=== PATIENT | female | born 1955 | race Caucasian/White ===

== ENCOUNTER → 2022-09-15 10:01 | Outpatient (CLI) | payer MEDICARE, SELFPAY ==
--- NOTE | ~2022-09-15 | MM_ITS ---
EXAMINATION: MM screening ginger LT w jess HISTORY: Screening TECHNIQUE: Craniocaudal and mediolateral oblique 3-D tomosynthesis images were obtained and synthetic 2-D images were generated. CAD analysis was submitted and interpreted. COMPARISON: No prior mammogram is available for comparison at this institution. BREAST PARENCHYMAL COMPOSITION: There are scattered areas of fibroglandular density. FINDINGS: There is no evidence of suspicious mass, calcification, or architectural distortion to sugg est malignancy in the left breast. There has been no suspicious interval change. IMPRESSION: 1. No mammographic evidence of malignancy. 2. Recommend routine screening mammography in one year. BI-RADS Category 1: Negative Reviewed, dictated and finalized at location A. IST DESIGNER
== END ==
PROVIDERS: PCP Family Medicine; Visit Provider Obstetrics & Gynecology
DX: Z12.31 Encounter for screening mammogram for malignant neoplasm of breast (principal)
CPT/HCPCS: 77063; 77067

== ENCOUNTER 2022-10-17 08:03 | Outpatient (CLI) | payer MEDICARE, SELFPAY ==
[2022-10-17 12:17] LABS: Kit Draw Collected
== END 2022-10-17 08:04 | disposition home or self-care (01) ==
LOC: ANHGOSHLAB 08:05
PROVIDERS: PCP Family Medicine; Visit Provider Nurse Practitioner Family
DX: E55.9 Vitamin D deficiency, unspecified (principal); E78.5 Hyperlipidemia, unspecified; I10 Essential (primary) hypertension
CPT/HCPCS: 36415

== ENCOUNTER 2023-04-25 08:02 | Outpatient (CLI) | payer MEDICARE, SELFPAY ==
[2023-04-25 12:59] LABS: Basophils Absolute Auto 0.1 K/mm3 (0.0-0.1); Eosinophils Absolute Auto 0.1 K/mm3 (0-0.3); Eosinophils Percent Auto 2.6 % (0-4.4); Hematocrit 42.8 % (37.0-47.0); Immature Granulocyte Absolute 0.03 K/mm3 (0.00-0.031); Immature Granulocyte Percent A 0.6 % (0-0.5); Lymphocytes Absolute Auto 1.68 K/mm3 (0.9-3.2); Lymphocytes Percent Auto 34.2 % (18.3-44.2); Mean Corpuscular HGB Conc 32.7 g/dl (32-36); Mean Corpuscular Hemoglobin 31.1 pg (26-34); Mean Corpuscular Volume 95.1 fl (80-100); Monocytes Absolute Auto 0.4 K/mm3 (0.1-0.6); Monocytes Percent Auto 8.6 % (2.6-8.5); Neutrophils Absolute Auto 2.6 K/mm3 (1.3-6.7); Platelet Count Result 219 k/mm3 (150-375); Red Cell Distribution Width 13.3 % (11.5-14.5); White Blood Count 4.9 K/mm3 (4.5-10.0)
[2023-04-25 13:15] LABS: Alanine Aminotransferase 34 U/L (6-35); Albumin Level 4.4 g/dL (3.5-5.1); Alkaline Phosphatase 92 U/L (38-126); Anion Gap 9 mmol/L (8-16); Aspartate Amino Transferase 43 U/L (14-36); Bilirubin,Total 0.6 mg/dL (0.2-1.3); Blood Urea Nitrogen 11 mg/dL (7-17); Carbon Dioxide 25 mmol/L (22-30); Chloride 104 mmol/L (98-107); Cholesterol 237 mg/dL (0-200); Estimated Glomerular Filt Rate > 60; Glucose 92 mg/dL (65-110); HDL Direct 83 mg/dL; Potassium 3.8 mmol/L (3.4-5.0); Sodium 138 mmol/L (137-145); Triglycerides 141 mg/dL (<150)
[2023-04-25 13:26] LABS: LDL Cholesterol Direct 113 mg/dL
[2023-04-25 13:30] LABS: Hemoglobin A1C 5.4 % (<5.7)
[2023-04-25 13:31] LABS: Vitamin D 25 Hydroxy 79.2 ng/mL
== END 2023-04-25 08:03 | disposition home or self-care (01) ==
PROVIDERS: PCP Family Medicine; Visit Provider Nurse Practitioner Family
DX: I10 Essential (primary) hypertension (principal); Z13.220 Encounter for screening for lipoid disorders; Z13.21 Encounter for screening for nutritional disorder; Z13.1 Encounter for screening for diabetes mellitus; Z13.29 Encounter for screening for other suspected endocrine disorder; Z79.899 Other long term (current) drug therapy
CPT/HCPCS: 36415; 80053; 80061; 82306; 83036; 84443; 85025

== ENCOUNTER → 2023-09-26 09:57 | Outpatient (CLI) | payer MEDICARE, SELFPAY ==
--- NOTE | ~2023-09-26 | DEXA_ITS ---
Bone Density Report Name: JOSE ELIAS AVITIA Age: 68 Sex: Female Ethnicity: White Date of : 1955 Indication: postmenopausal osteoporosis; prior fracture; Referring Provider: Ivis Avalos Study: Bone densitometry was performed. Exam Date: September 26, 2023 Accession number: [id number] Bone Density: Region BMD T-score Z-score Classification AP Spine (L1-L4) 0.681 -3.3 -1.5 Osteoporosis Femoral Neck (Left) 0.712 -1.2 0.3 Osteopenia Total Hip (Left) 0.818 -1.0 0.3 Normal Femoral Neck (Right) 0.729 -1.1 0.5 Osteopenia Total Hip (Right) 0.800 -1.2 0.1 Osteopenia Total Hip Mean 0.809 -1.1 0.2 Osteopenia World Health Organization criteria for BMD impression classify patients as: Normal (T-score at or above -1.0), Osteopenia (T-score between -1.0 and -2.5), or Osteoporosis (T-score at or below -2.5). 10-year Fracture Risk: FRAX not reported because: Some T-score for Spine Total or Hip Total or Femoral Neck at or below -2.5 Previous Exams: Region Exam Age BMD T-score BMD Change BMD Change Date g/cm2 vs Baseline vs Previous AP Spine(L1-L4) 09/26/2023 68 0.681 -3.3 -0.064 -0.074 11/06/2009 54 0.755 -2.7 0.011 0.011 07/08/2008 52 0.744 -2.8 Total Hip(Left) 09/26/2023 68 0.818 -1.0 -0.090* -0.110* 11/06/2009 54 0.928 -0.1 0.020 0.020 07/08/2008 52 0.908 -0.3 Total Hip(Right) 09/26/2023 68 0.800 -1.2 -0.130* -0.157* 11/06/2009 54 0.956 0.1 0.027 0.027 07/08/2008 52 0.929 -0.1 *Denotes significance at 95% confidence level, LSC for AP Spine = 0.022 g/cm2, LSC for Total Hip = 0.027 g/cm2 Clinical Information Provided by Patient: Has had a low trauma fracture Has used the following medications: Vitamin D Patient maximum height was 62.25 Menopause Age: 51 No regular weight bearing exercise Drinks caffeinated beverages Onset of menses at age 17 Number of children 3 Missed period for more than 6 months in a row Impression: The patient has established osteoporosis, based on the Total Spine T-score and the existence of a prior fracture. The patient has risk factors, including: previous fracture. The BMD for the Total Hip(Left) decreased, changing by -0.110 since the last DXA exam. The BMD for the Total Hip(Right) decreased, changing by -0.157 since the last DXA exam. Discussion: HIGH RISK OF FRACTURE. BONE DENSITY IS UNDESI
--- NOTE | ~2023-09-26 | MM_ITS ---
EXAMINATION: MM screening ginger LT w jess HISTORY: Screening mammogram, history of right mastectomy TECHNIQUE: Craniocaudal and mediolateral oblique 3-D tomosynthesis images were obtained and synthetic 2-D images were generated. CAD analysis was submitted and interpreted. COMPARISON: 09/15/2022 BREAST PARENCHYMAL COMPOSITION: There are scattered areas of fibroglandular density.22 FINDINGS: No suspicious mass, calcification, or architectural distortion are identified to suggest ma lignancy. There has been no suspicious interval change. IMPRESSION: 1. No mammographic evidence of malignancy. 2. Recommend routine screening mammography in one year. BI-RADS Category 1: Negative Reviewed, dictated and finalized at location A. PROGRAMMER REMOTE
== END ==
PROVIDERS: PCP Obstetrics & Gynecology; Visit Provider Obstetrics & Gynecology
DX: Z12.31 Encounter for screening mammogram for malignant neoplasm of breast (principal); M85.88 Other specified disorders of bone density and structure, other site; M81.0 Age-related osteoporosis without current pathological fracture; M85.852 Other specified disorders of bone density and structure, left thigh; M85.851 Other specified disorders of bone density and structure, right thigh
CPT/HCPCS: 77063; 77067; 77080

== ENCOUNTER 2024-09-30 14:13 | Outpatient (CLI) | payer MEDICARE, SELFPAY ==
--- NOTE | ~2024-09-30 | MM_ITS ---
EXAMINATION: MM screening ginger LT w jess HISTORY: Screening. Status post right mastectomy for malignancy. TECHNIQUE: Craniocaudal and mediolateral oblique 3-D tomosynthesis images were obtained and synthetic 2-D images were generated. CAD analysis was submitted and interpreted. COMPARISON: Comparison to multiple prior studies sequentially, with oldest reviewed study dated 09/2022. BREAST PARENCHYMAL COMPOSITION: Not dense: There are scattered areas of fibroglandular density. FINDINGS: There is no evidence of suspicious mass, calcification, or architectural distortion to sugg est malignancy in the left breast. There has been no suspicious interval change. IMPRESSION: 1. No mammographic evidence of malignancy. 2. Recommend routine screening mammography in one year. BI-RADS Category 1: Negative Reviewed, dictated and finalized at location B. L INSTALLER
== END 2024-09-30 14:14 | disposition home or self-care (01) ==
LOC: MICIMG 14:14
PROVIDERS: PCP Family Medicine; Visit Provider Family Medicine
DX: Z12.31 Encounter for screening mammogram for malignant neoplasm of breast (principal)
CPT/HCPCS: 77063; 77067

== ENCOUNTER 2025-01-08 08:30 | Outpatient (CLI) | payer MEDICARE, SELFPAY ==
--- OUTSIDE RECORDS SUMMARY | 2025-01-08 08:33 | XMS_ITS | Clinical Summary ---
Author Organization [facility] Address [address] [place] [address] Care Team Providers Care House Wrecker Name Role Phone Lonnie Myers MD Primary Care Provider [phone] Source Comments [facility],non-owned Affiliates and Associated Physician Practices is amultiple site organization consisting of ambulatory clinics and hospital sitesin [place], [place], [place] and [place]. This disclosure is being madepursuant to the Care Everywhere program and may not contain all information available regarding this patient. Last updated 18.[facility] Allergies Active Allergy Reactions Criticality Noted Date Comments Prednisone 02/05/2017 Medications * Be aware that medications may not be up to date on this document. Alwaysverify current medications with the patient. No known medications Social History Tobacco Use Types Packs/Day Years Used Date Smoking Tobacco: Never Smokeless Tobacco: Never Comments Unknown Sex and Gender Information Value Date Recorded Sex Assigned at Not on file Legal Sex Female 10:37 AM CDT Gender Identity Not on file Sexual Orientation Not on file Last Filed Vital Signs Vital Sign Reading Time Taken Comments Blood Pressure 142/94 02/05/2017 11:31 AM CDT Pulse 78 02/05/2017 11:31 AM CDT Temperature 36.6 C (97.9 F) 02/05/2017 11:31 AM CDT Respiratory Rate 16 02/05/2017 11:31 AM CDT Oxygen Saturation 99% 02/05/2017 11:31 AM CDT Inhaled Oxygen Concentration - - Weight 68 kg (150 lb) 02/05/2017 11:31 AM CDT Height 157.5 cm (5' 2) 02/05/2017 11:31 AM CDT Body Mass Index 27.44 02/05/2017 11:31 AM CDT Plan of Treatment Health Maintenance Due Date Last Done Comments BONE DENSITY TESTING 1955 COLOGUARD (AGES 45-75) - COL ON CA SCREENING 1955 COLON MONITORING 1955 COLONOSCOPY - COLON CA SCREENING 1955 CT COLONOGRAPHY - COLON CA SCREENING 1955 Colorectal Cancer Screening 1955 FIT - COLON CA SCREENING 1955 FLEX SIG - COLON CA SCREENING 1955 LIPID TESTING 1955 MAMMOGRAM 1955 HEPATITIS C SCREENING 08/19/1975 DTAP/TDAP/TD VACCINES (1 - Tdap) 1976 PNEUMOCOCCAL VACCINE 50+ (1 of 1 - PCV) 2007 ZOSTER VACCINE (1 of 2) 2007 COVID-19 VACCINE ( - 2023-2 5 season) 2024 DEPRESSION SCREENING 08/14/2024 INFLUENZA VACCINE (Season Ended) 2025 Respiratory Syncytial Virus (RSV) Vaccine Pt: or over 60 yrs (1 - 1-dose 75+ series) 2032 HEPATITIS B VACCINE Aged Out No longe r eligible based on patient's age to complete this topic HIB VACCINE Aged Out No longer eligi ble based on patient's age to complete this topic HPV VACCINE Aged Out No longer eligi ble based on patient's age to complete this topic MENINGOCOCCAL (Group B) VACC INE SHARED DECISION-MAKING Aged Out No longer eligibl e based on patient's age to complete this topic MENINGOCOCCAL GROUPS A/C/Y/W VACCINE Aged Out No longer eligible b ased on patient's age to complete this topic Insurance [facility] Address: [facility] [id number] [place] [address] Care Teams House Wrecker Relationship Specialty Start Date End Date Lonnie Myers MD [address] [place] [address] PCP - General Family Medicine 02/05/17
--- OUTSIDE RECORDS SUMMARY | 2025-01-08 08:33 | XMS_ITS | Clinical Summary ---
Author Organization [facility] Address [address] [place] [address] Phone Care Team Providers Care Recruiting And Selection Consultant Name Role Phone Shelbie Joseph MD Primary Care Provider Allergies Active Allergy Reactions Criticality Noted Date Comments Chocolate Flavor Other (See Comments) 1 MIGRAINES Prednisone Other (See Comments) 02/05/2017 Heart races Medications VITAMIN E PO Take by mouth daily. Active OMEGA-3 FATTY ACIDS (FISH OIL PO) Take by mouth daily. Active CALCIUM ORAL Take by mouth. Active Ergocalciferol, Vitamin D2, 1,000 unit Oral Tab Take by mouth. Active Magnesium 100 mg Oral Tab Take by mouth. Active clobetasol (TEMOVATE) 0.05 % Ointment 05/19/2017 Active irbesartan (AVAPRO) 150 mg tablet Take 300 mg by mouth daily. 99 12/05/2017 Active Glucosamine Sulfate 1,000 mg Capsule Take by mouth. Active apremilast (OTEZLA) 30 mg TabletIndication s:Psoriasis Take 1 Tablet by mouth 2 times daily. 12/21/2018 Active amLODIPine (NORVASC) 5 mg tablet Take 5 mg by mouth daily. Active rosuvastatin (CRESTOR) 5 mg tablet Take 10 mg by mouth daily at bedtime. Active Active Problems Patient Care Coordination No te Formatting of this note migh t be different from the original. Primary Care: Lonnie Myers MD (General) Referring Provider: Dafne Grimes MD [address] [place] [address] Other: Problem Noted Date Diagnosed Date BRCA negative 07/20/2015 Overview (07/20/2015): The patient underwent the [employer] my risk genetic testing due to her personal history of breast cancer diagnosed under age 50. There was also a family history of a mother with breast cancer. The patient also had a family history of a brother that at age 50 of metastatic colorectal cancer. The patient tested negative for any deleterious mutations in all 25 genes that were tested. This testing included the genes responsible for HBOC, Morocho syndrome, as well as most additional hereditary cancer syndromes. Family history of breast cancer in mother 2014 Family history of malignant neoplasm of colon in relative diagnosed when younger than 50 years of age 1106/23/2015 Encounter for genetic counseling and testing 05/2015 S/P right mastectomy 03/06/2015 Breast Cancer- T2 N1, stage IIB right breast can ce 12/23/2011 Psoriasis 03/04/2009 Breast cancer 03/04/2009 Overview (10/17/2012): pancreatic cancer prior to her dx 11/22/06 Stage IIb (T2N1Mx) IDC RIGHT breast ER 87% MI 83% HER2/ruddy - Ki67 8% PREMENO s/p RIGHT mastectomy Fec x 3 --Taxotere x 3 finished 04/26/07 (now postmenopausal) 07/19/07 Radiaiton complete 08/14/07 TMX x 5 year Assessment & Plan (05/13/2013 2:42 PM CDT): 6 1/2 yr out mammo left February lsot daronht with AID Assessment & Plan (10/17/2012 3:00 PM EMERGENCY ROOM TECHNICIAN): 6 years out Mammo on left in December BMD 2011 ROV 6 months Assessment & Plan (04/09/2012 3:11 PM CDT): 5 1/2 years out Will stop TMX now mammo December BMD 2011 ROV 1 year Assessment & Plan (09/30/2011 11:12 AM EMERGENCY ROOM TECHNICIAN): 5 years out in November last week On TMX until next Aug Mammo November Bmd due this year ROV 1 year Assessment & Plan (03/25/2011 11:22 AM CDT): 4 + years out 2 grandsons - live next door to her On TMX 3 1/2 years Mammo November BMD 2009 ROV 6 months per her request Assessment & Plan (09/20/2010 11:23 AM EMERGENCY ROOM TECHNICIAN): Will be 4yrs out in November ENGAGED On TMX 3 yrs Mammogram November Implant left breast with cysts above it - check u/s BMD 2009 ROV 6 months Assessment & Plan (03/19/2010 3:03 PM CDT): 3 yrs out Tmx / urs - doesn't want to switch Mammogram November Implant left breast BMD 2009 ROV 1 year Assessment & Plan (09/14/2009 2:58 PM EMERGENCY ROOM TECHNICIAN): Taking Reliv and her ankle pain is gone 3 yrs out in November ROS negative; exam negative ROV 6 months Check labs Assessment & Plan (03/05/2009 11:42 AM CDT): 4 years 3 months from diagnosis with complaints of joint pain, primarily in ankles. Has been seeing a chiropractor for some time now. Rest of ROV neg. PLAN: Discussed TMX, which she's been on for 1 1/2 years adn is amenorrheic, but doesn't want to increase joint pains. Will reeval in 6 months. Check vitamin D Check labs. ROV 6 months. Personal history of malignant neoplasm of breast Disproportion between [place] breast and reconstructed breast Personal history of radiation therapy S/P TRAM (transverse rectus abdominis muscle) flap breast reconstruction Ventral incisional hernia without obstruction or gangrene Resolved Problems Problem Noted Date Diagnosed Date Resolved Date Depressive disorder, not elsewhere classified 03/04/20 09 09/06/2021 Family History Medical History Relation Name Comments Colon Cancer Brother 1 at 50 Healthy Brother 2 Healthy Brother 3 Healthy Father Healthy Maternal Aunt 2 Healthy Maternal Uncle Breast Cancer Mother Colon Cancer Paternal Uncle 1 Healthy Paternal Uncle 1 Healthy Paternal Uncle 2 Healthy Sister 1 Healthy Sister 2 Healthy Sister 3 Healthy Son 1 Healthy Son 2 Healthy Son 3 Cancer Neg Hx Ovarian Cancer Neg Hx Relation Name Status Comments Brother 1 Brother 2 Alive Brother 3 Alive Father Alive Maternal Aunt 1 Maternal Aunt 2 Alive Maternal Grandfather Maternal Grandmother Maternal Uncle Alive Mother Alive Paternal Grandfather Paternal Grandmother Paternal Uncle 1 Alive Paternal Uncle 2 Alive Sister 1 Alive Sister 2 Alive Sister 3 Alive Son 1 Alive Son 2 Alive Son 3 Alive Social History Tobacco Use Types Packs/Day Years Used Date Smoking Tobacco: Former Cigarettes 0.3 25 0 10/12/1981 - 10/12/2006 Smokeless Tobacco: Never Tobacco Cessation:Counseling Given: Not Answered Alcohol Use Standard Drinks/Week Comments Yes 0 (1 standard drink = 0.6 oz pur e alcohol) 1 BOTTLE WINE/WK Comments No Sex and Gender Information Value Date Recorded Sex Assigned at Not on file Legal Sex Female 5:41 AM EMERGENCY ROOM TECHNICIAN Gender Identity Not on file Sexual Orientation Not on file Occupation Industry Job Start Date Job End Date Not on file Not on file Not on file Not on file Last Filed Vital Signs Vital Sign Reading Time Taken Comments Blood Pressure 153/97 07/22/2022 9:23 AM EMERGENCY ROOM TECHNICIAN Pulse 80 07/24/2021 4:37 PM EMERGENCY ROOM TECHNICIAN Temperature 36.1 C (97 F) 07/24/2021 4:14 PM EMERGENCY ROOM TECHNICIAN Respiratory Rate 18 07/24/2021 4:37 PM EMERGENCY ROOM TECHNICIAN Oxygen Saturation 92% 07/24/2021 4:37 PM EMERGENCY ROOM TECHNICIAN Inhaled Oxygen Concentration - - Weight 79.8 kg (176 lb) 07/22/2022 9:23 AM EMERGENCY ROOM TECHNICIAN Height 157.5 cm (5' 2) 07/22/2022 9:23 AM EMERGENCY ROOM TECHNICIAN Body Mass Index 32.19 07/22/2022 9:23 AM EMERGENCY ROOM TECHNICIAN Plan of Treatment Health Maintenance Due Date Last Done Comments DTAP/TDAP/TD VACCINES (1 - Tdap) 1976 COLORECTAL SCREENING 2002 Colorectal Cancer Screening 2002 FIT-DNA Q 3 years 2002 FIT/FOBT Q 1 year 2002 Flex Sig/CT Colonography Q 5 years 2002 PNEUMOCOCCAL VACCINE 50+ YEA RS (1 of 1 - PCV) 2007 ZOSTER VACCINE (1 of 2) 2007 BREAST CANCER SCREENING 07/22/2022 07/22/20 21, 07/23/2020, 07/16/2019, Additional history exists OSTEOPOROSIS SCREENING 2022 INFLUENZA VACCINE (#1) 2024 RSV VACCINE (60+ or ) (1 - 1-dose 75+ series) 2032 Medical Devices Implanted Type Area Pet Walker Device Identifier Shelf Expiration Date Model / Serial / Lot Legal Cashier Clip Surgiclip Ii Abdoul 9.75in [id number] - [id number] Implanted:Qty: 1 on 11/18/2020 by Navin Leroy MD at [facility] Clip N/A: Abdomen MEDTRONIC - COVIDIEN [id number] 07/13/2025 [id number] / / [id number] Description:Implanted in jose ast and abdominal tissue Legal Cashier Clip Surgiclip Ii Abdoul 9.75in [id number] - [id number] Implanted:Qty: 1 on 11/18/2020 by Navin Leroy MD at [facility] Clip N/A: Abdomen MEDTRONIC - COVIDIEN [id number] 07/13/2025 [id number] / / [id number] Description:Implanted in jose ast and abdominal tissue Legal Cashier Clip Surgiclip Iii Ti Abdoul Sm 9 [id number] - [id number] Implanted:Qty: 1 on 11/18/2020 by Navin Leroy MD at [facility] Clip N/A: Abdomen [employer]ONIC - COVIDIEN [id number] 06/13/2025 [id number] / / [id number] Description:Implanted in jose ast and abdominal tissue Legal Cashier Clip Surgiclip Iii Ti Abdoul Sm 9 [id number] - [id number] Implanted:Qty: 1 on 11/18/2020 by Navin Leroy MD at [facility] Clip N/A: Abdomen [employer] - COVIDIEN [id number] 06/13/2025 [id number] / / [id number] Description:Implanted in jose ast and abdominal tissue Clip Micro Denali 6s [id number] - [id number] Implanted:Qty: 9 on 11/18/2020 by Navin Leroy MD at [facility] Clip N/A: Abdomen VITALITEC INTL [id number] 02/10/2025 [id number] / / [id number] Description:Implanted in jose ast and abdominal tissue Clip Micro Denali 6s [id number] - [id number] Implanted:Qty: 1 on 11/18/2020 by Navin Leroy MD at [facility] Clip N/A: Abdomen VITALITEC INTL [id number] 08/13/2025 [id number] / / [id number] Description:Implanted in jose ast and abdominal tissue Mesh Soft Mesh 6x6 [id number] - [id number] Implanted:Qty: 1 on 02/03/2021 by Navin Leroy MD at [facility] Mesh Left: Abdomen CR BARD[employer] [id number] 03/10/2025 [id number] / / [id number] Med Oval [id number] - [id number] Implanted:Qty: 1 on 07/24/2021 by Navin Leroy MD at [facility] Mesh N/A: Abdomen CR BARD- [employer] INC [id number] 01/08/2023 [id number] / / [id number] News Librarian Microvasc Anastomotic 3.5mm [id number] - [id number] Implanted:Qty: 1 on 11/18/2020 by Navin Leroy MD at [facility] Other Right: Breast SYNOVIS- MICRO CO ALLIANCE 10/01/2025 [id number] / / [id number] News Librarian Microvasc Anastomotic 3.0mm [id number] - [id number] Implanted:Qty: 1 on 11/18/2020 by Navin Leroy MD at [facility] Other Right: Breast SYNOVIS- MICRO [employer] ALLIANCE 09/11/2025 [id number] / / [id number] News Librarian Microvasc Anastomotic 2.0mm [id number] - [id number] Implanted:Qty: 1 on 11/18/2020 by Navin Leroy MD at [facility] Other Right: Breast SYNOVIS- MICRO CO ALLIANCE 01/27/2025 [id number] / / [id number] Hardware R Side Of Head Wei Cataracts With Iol Explanted Type Area Pet Walker Device Identifier Shelf Expiration Date Model / Serial / Lot Imp Breast Natrelle 410mx 165gm [id number] - [id number] Explanted:Qty : 1 on 11/18/2020 by Navin Leroy MD at [facility] Mammary Left: Breast ALLERGAN- MEDICAL [id number] / / [id number] Description:410-MX 165g, lot [id number] Viji implanted in 2009 Imp Breast Starr 410mx 165gm [id number] - [id number] Explanted:Qty : 1 on 11/18/2020 by Navin Leroy MD at [facility] Mammary Right: Breast ALLERGAN- MEDICAL [id number] / / [id number] Description:410-MX 445cc lot [id number] implanted in 2009 Procedures Procedure Name Priority Date/Time Associated Diagnosis Comments MAMMO 3D EVIN SCREEN UNI LT W OR WO CAD Routine 07/22/2021 9:53 AM EMERGENCY ROOM TECHNICIAN History of breast cancer from Last 3 Months or Most Recently Relevant to Health Maintenance Results * MAMMO SCRN UNI LT 3D EVIN W OR WO CAD (07/22/2021 9:53 AM EMERGENCY ROOM TECHNICIAN) Anatomical Region Laterality Modality Breast Left Mammography 07/22/2021 9:54 AM EMERGENCY ROOM TECHNICIAN Impressions 07/22/2021 3:25 PM EMERGENCY ROOM TECHNICIAN IMPRESSION: No mammographic evidence of malignancy. RECOMMENDATIONS: Routine screening mammogram in one year. DICTATION LOCATION: [facility] 07/22/2021 3:25 PM EMERGENCY ROOM TECHNICIAN EXAM: LEFT UNILATERAL FULL-FIELD DIGITAL SCREENING MAMMOGRAM WITH CAD WITH 3D TOMOSYNTHESIS DATE: 07/22/2021 9:53 AM HISTORY: Personal history of right breast cancer treated with mastectomy. Previous breast augmentation. The breast implants were removed in November of this year. Annual follow-up. TECHNIQUE: Full-field digital craniocaudad and mediolateral oblique views were obtained of the left breast. Low dose full field digital breast tomosynthesis examination was performed with 2D and 3D acquisitions. Examination is read in conjunction with computer aided detection. COMPARISON: February 2015 through July 2020 BREAST COMPOSITION: Scattered fibroglandular densities. FINDINGS: No suspicious mass, suspicious microcalcifications or architectural distortion is identified in the left breast. Since the prior study, there has been no significant interval change. CAD detects no significant abnormality. OVERALL FINAL ASSESSMENT: BI-RADS CATEGORY 1 - Negative Procedure Note Wade Dawn MD - 07/22/2021 EXAM: LEFT UNILATERAL FULL-FIELD DIGITAL SCREENING MAMMOGRAM WITH CAD WITH 3D TOMOSYNTHESIS DATE: 07/22/2021 9:53 AM HISTORY: Personal history of right breast cancer treated with mastectomy. Previous breast augmentation. The breast implants were removed in November of this year. Annual follow-up. TECHNIQUE: Full-field digital craniocaudad and mediolateral oblique views were obtained of the left breast. Low dose full field digital breast tomosynthesis examination was performed with 2D and 3D acquisitions. Examination is read in conjunction with computer aided detection. COMPARISON: February 2015 through July 2020 BREAST COMPOSITION: Scattered fibroglandular densities. FINDINGS: No suspicious mass, suspicious microcalcifications or architectural distortion is identified in the left breast. Since the prior study, there has been no significant interval change. CAD detects no significant abnormality. OVERALL FINAL ASSESSMENT: BI-RADS CATEGORY 1 - Negative IMPRESSION: No mammographic evidence of malignancy. RECOMMENDATIONS: Routine screening mammogram in one year. DICTATION LOCATION: [facility] Randee Santos MD MAMMO ORDERABLES Final Result from Last 3 Months or Most Recently Relevant to Health Maintenance Insurance RX [facility] [facility] BENEFIT PL[facility] Advance Directives For more information, please contact: [phone] Documents on File Type Date Recorded Patient Cleaning Laborer Expl anation Advance Directive POA 11/27/2014 11:15 AM * Full Code (Latest Code Status on File) Date Activated Date Inactivated Comments 02/03/2021 1:51 PM 02/03/2021 10:53 PM * Full Code Date Activated Date Inactivated Comments 11/18/2020 5:20 PM 11/21/2020 10:12 PM * Full Code Date Activated Date Inactivated Comments 11/18/2020 3:10 PM 11/18/2020 5:20 PM Care Teams Recruiting And Selection Consultant Relationship Specialty Start Date End Date Shelbie Joseph MD [address] [place] [address] PCP - General Family Practice 07/22/21
--- OUTSIDE RECORDS SUMMARY | 2025-01-08 08:34 | XMS_ITS | Data Portability ---
Author Organization [facility] Address [address] [place] [address] Care Team Providers Care Pin Puller Name Role Phone CUONGANGELACLARKSADIA Primary Care Provider Assessment Encounter Date Assessment Date Assessment LastModified by Organization Details LastModified Time 09/27/2024 09/27/2024 Annual gynecological exam performed. Patient will come back in a year unless there are new symptoms. Not available 09/27/2024 13:54:44 Plan of Treatment Reminders Order Date Submit Date Provider Last Modified By Organization Details Last Modified Time Details Appointments None recorded . Lab CMP, serum or plasma 024 10/09/19 24 [facility] (Lab), [address], [place], [address], 4 05:36:04 Referral None recorded . Procedures None recorded . Surgeries None recorded . Imaging None recorded . Medication Orders None recorded . Patient TargetsNo targets recorded. Patient InstructionsNo instructions recorded. Reason for Referral None Reported. Results Created Date Observation Date Name Description Value Unit Range Abnormal Flag Note LastModifiedBy Organization Detail LastModifiedTime 05/30/20 23 05/30/2023 SURGI MIKE PATHO LOGY surgical pathology SEE RESULT S BELOW CASE REPOR T: Surgi mike Patho logy Repor t Case: [id number] Autho kaitlin tsai Provi katey: Ladonna Tejeda MD Colle cted: 05/30 1650 Order ing Locat ion: [place] Path[facility] Recei brianda: 05/31 0246 Patho logis t: Jone Finley rd, MD Speci mens: A) - Endoc ervix , ECC B) - Cervi x, CXBX 12:00 C) - Cervi x, CXBX 9:00 FINAL DIAGN OSIS: A. Endoc ervix ; curet tage: Rare fragm ents of benig n endoc ervic al epith elium B. Cervi x at 12:00 ; biops y: High- grade squam ous epith elial lesio n (SHINE- 2) prese nt in a backg round of SHINE-1 P16 shows stron g block posit ivity in keepi ng with the above diagn osis C. Cervi x at 9:00; biops y: Benig n ectoc ervic al mucos a, negat denisa for dyspl indira Elect phuc cardenas felicia d by Jone Finley rd, MD on 06/01 at 10:06 AM ----- ----- ----- ----- ----- ----- ----- ----- ----- ----- ----- ----- ----- ----- ----- ----- ----- ---- CLINI MIKE INFOR MATMIN N: r87.6 10 MICRO SCOPI C DESCR IPTIO N: A micro scopi c exami natio n was perfo rmed. This test was devel oped and its perfo rmanc e felicity cteri stics deter mined by [facility]. It has not been clear ed or appro brianda by the U. S. Food and Drug Admin istra tion. The FDA has deter mined that such clear ance or appro navi is not neces marychuy. This test may be used for clini mike purpo se. It shoul d not be regar ded as inves tigat ional or for resea rch. This labor atory is certi fied under the Clini mike Labor atory Impro vemen t Amend ments of 1987 (CLIA ) as quali fied to perfo rm high compl exity clini mike labor atory testi ng. In cases which have decal cifie d tissu es, the resul ts shoul d be inter prete d with cauti on given the possi bilit y of false negat haider. The posit denisa contr ols demon strat e appro priat e posit denisa stain ing. The known tissu e negat denisa contr ols are negat denisa. The non-i mmune serum contr ol was non-r eacti ve. GROSS DESCR IPTIO N: A. Endoc ervix . The speci men is label ed with the patie nt's name, dominicog raphi cs and ECC . Recei brianda in forma shiva is a less than 0.1 [address] of mucus and minut e white -parsons tissu e. The entir e speci men is filte red throu gh a filte r bag and is submi tted in one casse tte; howev er, defin itive tissu e may not survi ve proce ssing . Gross ed by Froy gayle B. Cervi x. The speci men is label ed with the patie nt's name, dominicog raphi cs and 12:0 0. Recei brianda in forma shiva is a 0.2 cm piece of white -parsons tissu e. The entir e speci men is submi tted in one casse tte. Gross ed by Froy gayle C. Cervi x. The speci men is label ed with the patie nt's name, dominicog raphi cs and 9:00 . Recei brianda in forma shiva is a 0.5 cm piece of white -parsons tissu e. The entir e speci men is submi tted in one casse tte. Gross ed by Froy gayle Not Available [facility] (Lab) [address], [place], [address], 06/01/2023 11:10:35 07/10/20 23 07/10/2023 SURGI MIKE PATHO LOGY surgical pathology SEE RESULT S BELOW CASE REPOR T: Surgi mike Patho logy Repor t Case: [id number] Autho kaitlin tsai Provi katey: Deisi Baires MD Colle cted: 07/10 1540 Order ing Locat ion: [place] Patho [place]y Recei brianda: 07/11 0118 Patho logis t: Roxana Montes De Oca MD Speci mens: A) - Cervi x, Infer ior cervi x (6:00 ) B) - Cervi x, Super ior cervi x (12:0 0) FINAL DIAGN OSIS: A. Cervi x, infer ior 6:00, loop elect rosur gical excis ion proce dure: -Patrick gn cervi mike trans forma tion zone mucos a with payan es consi stent with prior proce dural site. -Nega tive for dyspl indira. B. Cervi x, super ior 12:00 , loop elect rosur gical excis ion proce dure: -High -grad e squam ous intra epith elial lesio n (SHINE- 2), compl etely excis ed. -All surgi mike tammy ns negat denisa for high- grade dyspl indira. Elect phuc sandhu by Roxana Montes De Oca MD on 07/11 at 3:40 PM ----- ----- ----- ----- ----- ----- ----- ----- ----- ----- ----- ----- ----- ----- ----- ----- ----- ---- COMME NT: LSIL/ SHINE-1 focal ly exten ds to the endoc ervic al tammy n. All surgi mike tammy ns are free of HSIL/ SHINE-2 . CLINI MIKE INFOR MATIO N: n87.9 MICRO SCOPI C DESCR IPTIO N: A micro scopi c exami natio n was perfo rmed. GROSS DESCR IPTIO N: A. Cervi x. The speci men is label ed with the patie nt's name and 1. Recei brianda in forma shiva is a 2.5 x 1.2 x 0.6 cm fragm ent of rubbe ry, pink- parsons cervi mike tissu e. There is a presu med endoc ervic al tammy n prese nt along 1 edge and a sutur e desig natin g the presu med 6 o'carolina ck posit ion (no speci fic orien lesterio n is provi ded for the sutur e). The presu med endoc ervic al tammy n is inked yello w and the remai dimitri tammy n is inked green and the speci men is secti oned and submi tted all as follo ws: A1: Appro ximat e 3-6 o'carolina ck. A2 and A3: Appro ximat e 6-9 o'carolina ck. Gross ed by Froy Riley Cervi x. The speci men is label ed with aleida nt's name, marcelle pennington cs and 2. Recei brianda in forma shiva is a 2.0 x 1.5 x 0.6 cm piece of parsons cervi mike tissu e. There is a presu med endoc ervic al tammy n prese nt along 1 edge and a sutur e prese nt at the oppos ite jimmyde r desig natin g the presu med 12 o'carolina ck posit ion. The endoc ervic al tammy n is inked yello w and the remai dimitri tammy n is inked green and the speci men is secti oned. The entir e speci men is submi tted as follo ws: B1: Secti ons from appro ximat e 12 to 3 o'carolina ck posit ion. B2: Secti ons from the submi tted 9 to 12 o'carolina ck posit ion. Gross ed by Froy gayle Not Available [facility] (Lab) [address], [place], [address], 07/11/2023 16:45:22 10/09/19 24 10/09/2023 CMP(C OMPRE HENSI VE METAB OLIC PANEL ) sodium 141 mmol/ L 133-14 6 Not Available [facility] (Lab) [address], [place], [address], 10/10/2023 05:36:04 10/09/19 24 10/09/2023 CMP(C OMPRE HENSI VE METAB OLIC PANEL ) potassium 4.1 mmol/ L 3.5-5. 1 Not Available [facility] (Lab) [address], [place], [address], 10/10/2023 05:36:04 10/09/19 24 10/09/2023 CMP(C OMPRE HENSI VE METAB OLIC PANEL ) chloride 105 mmol/ L 98-107 Not Available [facility] (Lab) [address], [place], [address], 10/10/2023 05:36:04 10/09/19 24 10/09/2023 CMP(C OMPRE HENSI VE METAB OLIC PANEL ) carbon dioxide 27 mmol/ L 21-31 Not Available [facility] (Lab) [address], [place], [address], 10/10/2023 05:36:04 10/09/19 24 10/09/2023 CMP(C OMPRE HENSI VE METAB OLIC PANEL ) anion gap 9 mmol/ L 4-13 Not Available [facility] (Lab) [address], [place], [address], 10/10/2023 05:36:04 10/09/19 24 10/09/2023 CMP(C OMPRE HENSI VE METAB OLIC PANEL ) blood urea nitrogen 16 mg/dL 7-25 Not Available [facility] (Lab) [address], [place], [address], 10/10/2023 05:36:04 10/09/19 24 10/09/2023 CMP(C OMPRE HENSI VE METAB OLIC PANEL ) creatinine 0.83 mg/dL 0.60-1 .30 Not Available [facility] (Lab) [address], [place], [address], 10/10/2023 05:36:04 10/09/19 24 10/09/2023 CMP(C OMPRE HENSI VE METAB OLIC PANEL ) egfrcr (CKD-epi 2020) 78 mL/mi n/1.7 3_m2 >=60 Not Available [facility] (Lab) [address], [place], [address], 10/10/2023 05:36:04 10/09/19 24 10/09/2023 CMP(C OMPRE HENSI VE METAB OLIC PANEL ) calcium 9.6 mg/dL 8.3-10 .5 Not Available [facility] (Lab) [address], [place], [address], 10/10/2023 05:36:04 10/09/19 24 10/09/2023 CMP(C OMPRE HENSI VE METAB OLIC PANEL ) glucose 105 mg/dL 70-100 high Not Available [facility] (Lab) [address], [place], [address], 10/10/2023 05:36:04 10/09/19 24 10/09/2023 CMP(C OMPRE HENSI VE METAB OLIC PANEL ) protein, total 6.9 g/dL 6.4-8. 3 Not Available [facility] (Lab) [address], [place], [address], 10/10/2023 05:36:04 10/09/19 24 10/09/2023 CMP(C OMPRE HENSI VE METAB OLIC PANEL ) albumin 4.2 g/dL 3.5-5. 0 Not Available [facility] (Lab) [address], [place], [address], 10/10/2023 05:36:04 10/09/19 24 10/09/2023 CMP(C OMPRE HENSI VE METAB OLIC PANEL ) ALT 31 units /L 9-43 Not Available [facility] (Lab) [address], [place], [address], 10/10/2023 05:36:04 10/09/19 24 10/09/2023 CMP(C OMPRE HENSI VE METAB OLIC PANEL ) alkaline phosphatase 104 units /L 34-104 Not Available [facility] (Lab) [address], [place], [address], 10/10/2023 05:36:04 10/09/19 24 10/09/2023 CMP(C OMPRE HENSI VE METAB OLIC PANEL ) AST 19 units /L 13-39 Not Available [facility] (Lab) [address], [place], [address], 10/10/2023 05:36:04 10/09/19 24 10/09/2023 CMP(C OMPRE HENSI VE METAB OLIC PANEL ) bilirubin, total 0.4 mg/dL 0.2-1. 2 Not Available [facility] (Lab) [address], [place], [address], 10/10/2023 05:36:04 09/26/19 24 09/26/2023 MAMMO , scree dimitri, bilat eral No observ ation record ed. [email or web address] [facility] [address], [place], [address], 10/19/2023 16:44:01 09/26/19 24 09/26/2023 DEXA No observ ation record ed. [email or web address] [facility] [address], [place], [address], 10/04/2023 09:29:58 Result Notes None recorded. Problems Name Problem SNOMED Code Status Onset Date Resolution Date Notes Provider Name and Address Organization Details Recorded Time [facility] hyperten keyana 44464082 Active 2020 Ivis Avalos MD [address], [place], [address], [facility] 12:37:25 Psoriasi s 2745170 Active 2020 Ivis Avalos MD [address], [place], [address], [facility] 1 12:37:32 History of malignan t neoplasm of breast 285430637 Active 2006 Ivis Avalos MD [address], [place], [address], [facility] 1 12:38:03 Prediabe melina 369203971 Active 2020 Ivis Avalos MD [address], [place], [address], [facility] 1 13:59:53 Hypercho lesterol emia 01984046 Active 2020 Ivis Avalos MD [address], [place], [address], [facility] 1 14:00:05 Human papillom a virus infectio n 249731709 Active 2021 Ivis Avalos MD [address], [place], [address], [facility] 2 14:11:25 Osteopor osis 67148331 Active 2022 Ivis Avalos MD [address], [place], [address], [facility] 3 13:32:33 History of abnormal cervical Papanico laou smear 849162402 Active 2023 2 ascus HPV 3 ascus hpv Michelle Ravi null, [facility] 4 16:38:08 Screenin g for malignan t neoplasm of rectum Completed 201803/30/2021 Encounte r for screenin g for malignan t neoplasm of rectum;P ractice ID: [id number] Ivis Avalos MD [address], [place], [address], [facility] 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 1 12:37:18 Screenin g for malignan t neoplasm of cervix Completed 201203/30/2021 Pap Smear;Pr actice ID: [id number] Ivis Avalos MD [address], [place], [address], [facility] 1 12:37:09 Adult health examinat ion Completed 201203/30/2021 Routine general medical examinat ion at a health care facility ;Practic e ID: [id number] Ivis Avalos MD [address], [place], [address], [facility] 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 12:37:14 Human papillom avirus deoxyrib onucleic acid detected , high risk on cervical specimen [id number] Completed 201803/30/2021 Cervical high risk HPV DNA test positive ;Practic e ID: [id number] Ivis Avalos MD [address], [place], [address], [facility] 12:37:07 Problem Notes None recorded. Procedures Surgical History Date Name Laterality Status Provider Name and Address Organization Details Recorded Time 03/04/20 24 Date of Last Pap Smear completed Margoth You [facility] 09/27/2024 13:55:26 07/10/20 23 LEEP completed SMITA ORONA MD [address], [place], [address], [facility] 07/10/2023 12:54:16 05/30/20 23 Colposcopy completed SMITA ORONA MD [address], [place], [address], [facility] 05/30/2023 12:43:27 09/15/19 23 Date of Last Mammogram completed Mariya Carlton [facility] 07/10/2023 12:22:22 04/27/20 22 Colposcopy completed Ivis Avalos MD [address], [place], [address], [facility] 04/27/2022 14:11:04 04/27/20 22 Colposcopy completed Mounika Jiang [facility] 10/28/2022 09:35:41 01/13/20 21 Nipple/areola reconstruction completed Ivis Avalos MD [address], [place], [address], [facility] 03/30/2021 13:58:55 11/13/19 21 Nipple/areola reconstruction completed [facility] 03/30/2021 12:29:05 08/14/19 07 Mastectomy completed [facility] 03/30/2021 09:24:49 08/14/19 07 Nipple/areola reconstruction completed [facility] 03/30/2021 09:24:27 Tubal Ligation completed [facility] 03/30/2021 09:21:20 procedure on wrist completed [facility] 03/30/2021 09:23:36 excision of bunion completed [facility] 03/30/2021 09:23:42 hernia repair completed [facility] 03/30/2021 09:23:48 Imaging Results None recorded. Procedure Notes None recorded. Medical Equipment None Reported. Allergies No known drug allergies Medications Name Sig Start Date Stop Date Status Note LastModified by Organization Details LastModified Time latanopro st 0.005 % eye drops INSTILL 1 DROP INTO BOTH EYES AT BEDTIME active Not Available Not Available No t Available atorvasta tin 10 mg tablet TAKE 1 TABLET BY MOUTH AT BEDTIME active Not Available Not Available No t Available azithromy shine 250 mg tablet TAKE 2 TABLETS BY MOUTH TODAY, THEN TAKE 1 TABLET DAILY FOR 4 DAYS 04/28 completed Not Available Not Available Not Available ibuprofen 800 mg tablet Take 1 tablet 2 hours before the procedur e. 03/04 completed Not Available Not Available Not Available diclofena c ER 100 mg tablet,ex tended release 24 hr TAKE 1 TABLET BY MOUTH EVERY DAY active Not Available Not Available No t Available alendrona te 70 mg tablet TAKE 1 TABLET BY MOUTH EVERY WEEK 2024 active Not Available Not Available Not Avai lable amlodipin e 5 mg tablet TAKE 1 TABLET BY MOUTH EVERY DAY 05/30 completed Not Available Not Available Not Available hydrocodo ne 10 mg-acetam inophen 325 mg tablet TAKE 1 TABLET 2 HOURS BEFORE THE PROCEDUR E. 03/04 completed Not Available Not Available Not Available ondansetr on 8 mg disintegr ating tablet Take 1 tablet 2 hours before procedur e. 03/04 completed Not Available Not Available Not Available alprazola m 0.5 mg tablet TAKE 1 TABLET 2 HOURS BEFORE THE PROCEDUR E. 03/04 completed Not Available Not Available Not Available amlodipin e 10 mg tablet TAKE 1 TABLET BY MOUTH EVERY DAY active Not Available Not Available No t Available irbesarta n 150 mg tablet take 1 tablet by oral route every day 05/30 completed Prescrib ed Elsewher e: Yes Loca tion: [facility] odify By: [email or web address] Encount er DateTime : 08/02/20 19 09:30:00 AM Not Available Not Available Not Available clobetaso l 0.05 % scalp solution PLEASE SEE ATTACHED FOR DETAILED DIRECTIO NS 03/04 completed Not Available Not Available Not Available irbesarta n 300 mg tablet TAKE 1 TABLET BY MOUTH EVERY DAY active Not Available Not Available No t Available rosuvasta tin 10 mg tablet TAKE 1 TABLET BY MOUTH EVERY DAY AT BEDTIME 05/30 completed Not Available Not Available Not Available calcium 05/30 completed Not Available Not Available Not Available amlodipin e 05/30 completed Not Available Not Available Not Available Vitamin D3 active Not Available Not Available Not Available rosuvasta tin 05/30 completed Not Available Not Available Not Available cholecalc iferol (vitamin D3) 1,250 mcg (50,000 unit) capsule TAKE 1 CAPSULE BY MOUTH ONCE WEEKLY 05/30 completed Not Available Not Available Not Available krill oil active Not Available Not Maria Elena ilable Not Available folate 5-iron-C- Ca thre-ps dha-Bs 14 8.73 mg-1.5 mg iron-40 mg capsule Take by oral route. 05/30 completed Not Available Not Available Not Available Otezla 30 mg tablet take 1 tablet by oral route 2 times every day approxim ately 12 hours apart active Not Available Not Available No t Available Vitamin B12 active Not Available Not Available Not Available BinaxNOW COVID-19 Ag Self Test kit Use as Directed on the Package 04/28 completed Not Available Not Available Not Available Paxlovid 300 mg (150 mg x 2)-100 mg tablets in a dose pack TAKE 2 TABLETS (NIRMATR KASSANDRA) AND TAKE 1 TABLET (RITONAV IR) BY MOUTH TWICE A DAY FOR 5 DAYS 09/27 completed Not Available Not Available Not Available Vtama 1 % topical cream active Not Available Not Available Not Available Vitals Date Recorded Body height Body mass index (BMI) Body weight Systolic blood pressure Diastolic blood pressure Provider Name and Address Organization Details Last Updated DateTime 09/27/2024 157.48 cm 36 kg/m2 16233.7 g 148 mm[Hg] 87 mm[Hg] Margoth You [facility] 5 13:58:14 Date Recorded Body height Body mass index (BMI) Body weight Systolic blood pressure Diastolic blood pressure Provider Name and Address Organization Details Last Updated DateTime 10/09/2023 157.48 cm 34.4 kg/m2 48790.37 g 148 mm[Hg] 81 mm[Hg] Mariya Quentin [facility] 4 16:15:04 Date Recorded Body height Body mass index (BMI) Body weight Systolic blood pressure Diastolic blood pressure Provider Name and Address Organization Details Last Updated DateTime 03/04/2024 157.48 cm 34.6 kg/m2 40863.96 g 170 mm[Hg] 83 mm[Hg] Michelle Ravi [facility] 4 16:36:34 Date Recorded Body height Body mass index (BMI) Body weight Systolic blood pressure Diastolic blood pressure Provider Name and Address Organization Details Last Updated DateTime 05/30/2023 157.48 cm 33.1 kg/m2 25853.5 g 163 mm[Hg] 85 mm[Hg] Mariya [facility]entin [facility] 3 12:01:58 Date Recorded Body height Body mass index (BMI) Body weight Systolic blood pressure Diastolic blood pressure Provider Name and Address Organization Details Last Updated DateTime 07/10/2023 157.48 cm 33.7 kg/m2 79295 g 120 mm[Hg] 80 mm[Hg] Mariya Carlton [facility] 12:25:17 Social History Question Answer Notes LastModified by Organizat ion Details LastModified Time Tobacco Smoking Status Former Smoker Michelle Breonna molina, [facility] 03/04/2024 16:40:50 How Many Years Have You Consumed Alcohol? 20 Information not available 07/10/2023 Are You Blind Or Do You Have Difficulty Seeing? No Information not available 05/30/2023 What Is Your Level Of Caffeine Consumption? Occasional Information not available 07/10/2023 How Much Tobacco Do You Chew? None Information not available 07/10/2023 In The 14 Days Before Symptom Onset, Have You Had Close Contact With A Laboratory-confir med COVID-19 While That Case Was Ill? No Information not available 07/10/2023 In The 14 Days Before Symptom Onset, Have You Had Close Contact With A Person Who Is Under Investigation For COVID-19 While That Person Was Ill? No Information not available 07/10/2023 Have You Been To An Area Known To Be High Risk For COVID-19? No Information not available 05/30/2023 Are You Deaf Or Do You Have Serious Difficulty Hearing? No Information not available 05/30/2023 What Type Of Diet Are You Following? REGULAR Information not available 05/30/2023 What Is The Highest Grade Or Level Of School You Have Completed Or The Highest Degree You Have Received? [id number] Information not available 07/10/2023 Are There Any Guns Present In Your Home? Yes Information not available 07/10/2023 Have You Ever Been Counseled For Unhealthy Alcohol Use? No [email or web address] Information not available 03/04/2024 Do You Use Protection During Sex? No Information not available 05/30/2023 Do You Use Your Seat Belt Or Car Seat Routinely? Yes Information not available 05/30/2023 Do You Have Smoke And Carbon Monoxide Detectors In Your Home? Yes Information not available 05/30/2023 How Much Tobacco Do You Smoke? No Information not available 05/30/2023 Do You Use Sunscreen Routinely? Yes Information not available 07/10/2023 Has Tobacco Cessation Counseling Been Provided? No [email or web address] Information not available 03/04/2024 Have You Used IV Drugs? No Information not available 05/30/2023 Do You Have Difficulty Walking Or Climbing Stairs? No [email or web address] Information not available 03/04/2024 Sex: Unknown Functional Status Question Answer Note LastModified by Organizat ion Details LastModified Time Do you use any illicit or recreational drugs? No Information not available 05/30/2023 Do you or have you ever used any other forms of tobacco or nicotine? No [email or web address] Information not available 03/04/2024 What is your level of alcohol consumption? Moderate Information not available 07/10/2023 Are you able to walk? YESWOREST Information not available 05/30/2023 Are you able to care for yourself? Yes Information n ot available 03/04/2024 What is your occupation? Retired Information not available 05/30/2023 Do you have difficulty dressing or bathing? No [email or web address] Information not available 03/04/2024 What is your exercise level? Occasional Information not available 07/10/2023 Mental Status Question Answer Note LastModified by Organization D etails LastModified Time Do you feel stressed (tense, restless, nervous, or anxious, or unable to sleep at night)? [id number] Information not available 07/10/2023 Family History Relationship Description Onset Age of this Age Resolved Age Notes LastModified by Organization Details LastModified Time Father No current problems or disability dswayne Not available 10/09 16:15:31 Mother No current problems or disability dswayne Not available 10/09 16:15:31 Notes:Maternal grandmother: Hypertension Mother: Urinary stress incontinence, Cancer, breast, Diabetes mellitus type 2, Obesity, Hypertension, Cancer, breast, Urinary stress incontinence, Obesity, Hypertension, Diabetes mellitus type 2, Cancer, breast, Diabetes mellitus, Hypertension Medical History Condition Response Allergies (Food, seasonal, environmental ) N Other N Blood Transfusion N Drug/Latex Allergies/Reactions N Breast Cancer Y Dermatologic Disorders N Lung Disease N Defects or Inherited Disease N Breast Problem Y Gestational Diabetes N Hematologic disorders N Anesthesia Complications N History of STI Y Deep Vein Thrombosis N Polycystic ovary syndrome N Anxiety Disorder N Autoimmune disease N Arthritis N Infertility N Polyps N Acid Reflux (GERD) Y History of abnormal pap Y Cancer Y Stroke N Varicosities N Neurologic/Epilepsy Y Endometriosis N High Cholesterol Y Headaches N Fibromyalgia N Kidney Disease N Heart Problems N Kidney or Bladder Problems N Thyroid Problems N GI Problems Y Eating Disorder N Anemia N Art (IVF or FET) N Psychiatric Illness N Ovarian Cancer N Diabetes Y Pulmonary (TB, Asthma) N Hepatitis/Liver Disease N No Past Medical History N Eczema N Urinary Tract Infection N Abuse/Domestic Violence N Asthma N Trauma/Violence N Depression/ depression N Heart Disease N Pre-Eclampsia N Hypertension Y Osteoporosis Y Thrombophilias N Gynecological History Statement/Question Response Date of Last Mammogram 09/15/2022 Date of LMP 12/12/2006 N Was last menstrual period normal Y HPV Vaccine Y Colposcopy 04/27/2022 Duration of Flow (days) 5 Current Control Method Tubal Ligat ion Age at First Child 20 If Post Menopausal, Age at Menopause 51 Date of Last Colonoscopy Frequency of Cycle (Q days) 21 Most Recent Bone Density Sexually Active? Y Age of first menstrual cycle 16 Date of Last Pap Smear 03/04/2024 Sexual Problems? N Desired Control Method Other LMP Definite N Obstetrics History GPAL:G 3 P 3 0 0 3 Type Value Full Term 3 Living 3 Total 3 Past Encounters Encounter ID Performer Location Encounter Start Date Encounter Closed Date Diagnosis/Indication Diagnosis SNOMED-CT Code Diagnosis ICD10 Code Diagnosis Note [id number] Ivis Avalos MD [place] [address],[facility] [place] [address] 03/30/2021 12:21:02 03/30/2021 14:25:14 Gynecologic examination 72930070 Z01.419 Z11.51 History of malignant neoplasm of breast 894583893 Z85.3 [id number] MD Tania Barrios [address],[facility] [place] [address] 04/01/2022 11:26:27 04/01/2022 16:45:09 Gynecologic examination 54510805 Z01.419 Z11.51 History of malignant neoplasm of breast 541854181 Z85.3 [id number] Ivis Avalos MD [place] [address],[place] [address] 04/27/2022 12:28:27 04/27/2022 15:55:24 Atypical squamous cells of undetermined significance on cervical Papanicolaou smear 658227585 R87.610 Human jimmy lloma virus infection 418935486 B97.7 [id number] Ivis Avalos MD [place] [address],[place] [address] 10/28/2022 12:11:56 10/28/2022 13:48:31 Cervical intraepithelial neoplasia grade 1 408696831 N87.0 [id number] Ivis Avalos MD [place] [address],[place] [address] 04/28/2023 10:28:30 04/28/2023 13:49:47 Gynecologic examination 20681223 Z01.419 Atypical s quamous cells of undetermined significance on cervical Papanicolaou smear 184360205 R87.610 History of malignant neoplasm of breast 582062175 Z85.3 Human jimmy lloma virus infection 165912661 B97.7 Osteoporosis 27847561 M8 1.0 [id number] SMITA ORONA MD [place] [address],[place] [address] 05/30/2023 11:45:04 05/30/2023 12:54:43 Atypical squamous cells of undetermined significance on cervical Papanicolaou smear 214406223 R87.610 - colpo performed- will follow up results as available [id number] MD Tania FLORIAN [address],[place] [address] 07/10/2023 12:16:04 07/10/2023 12:55:54 Cervical intraepithelial neoplasia grade 2 769064145 N87.1 - LEEP performed, patient tolerated well- Follow up on results as available [id number] MD Tania FLORIAN [address],[place] [address] 10/09/2023 15:56:09 10/09/2023 17:21:13 Osteoporosis 37415254 M81.0 - T score -3.3 in lumbar spine, global osteopenia in other areas- has never been on medication s for osteopenia in the past- recommend starting alendronat e therapy weekly for osteoporos is- will check labs prior to initiation - recommend med check in 6 months, repeat DEXA in 1 year- also discussed calcium and vitamin d supplement ation in addition to bisphospho marielos therapy [id number] SMITA ORONA MD [place] [address],[facility] [place] [address] 03/04/2024 15:53:52 03/04/2024 17:07:26 History of loop electrosurgical excision procedure [id number] 9102 Z98.890 - 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 specimen- Pap collected today, will follow up on results as available [id number] SMITA ORONA MD [place] [address],[facility] [place] [address] 09/27/2024 13:34:10 09/27/2024 14:37:10 Gynecologic examination 22188588 Z01.419 [facility]- Cervical cancer screening: Pap smear obtained today, will follow up on the results with the patient as they become available- Breast cancer screening: mammogram scheduled Monday- HPV immunizati on: does not qualify- STD testing: declined- hereditary cancer screening: does not qualify for testing Screening for malignant neoplasm of cervix 733857929 Z12.4 - hx of CIN2, s/p LEEP 06/2023- normal pap 02/2024- repeat pap today Health Concerns Section Related Observation LastModified by Organization Detai ls LastModified Time None Recorded Concern Status LastModified by Organization Details LastModified Time None Recorded Advance Directives Directive None Recorded Payers Encounter Date Sequence Insurance Name Policy Number Policy Whitten Covered Member ID Whitten Member ID Guarantor Name 05/30/2023 1 [employer] (MEDICARE REPLACEMENT/ ADVANTAGE - PPO) [id number] Josie L Wellington [id number] Josie L Wellington 07/10/2023 1 [employer] (MEDICARE REPLACEMENT/ ADVANTAGE - PPO) [id number] Josie L Wellington [id number] Josie L Wellington 10/09/2023 1 [employer] (MEDICARE REPLACEMENT/ ADVANTAGE - PPO) [id number] Josie L Wellington [id number] Josie Norton Wellington 03/04/2024 1 [employer] (MEDICARE REPLACEMENT/ ADVANTAGE - PPO) [id number] Josie L Wellington [id number] Josie Norton Wellington 09/27/2024 1 [employer] (MEDICARE REPLACEMENT/ ADVANTAGE - PPO) [id number] Josie Norton Wellington [id number] Josie Norton Wellington Notes Date Note Type Note Provider Name and Address Organization Details Recorded Time 05/30/2023 text/html Patient presents for colposcopy, indicated for ASCUS with +HPV. Previous Pap with same result, colpo with free floating fragments of dysplastic ectocervical tissue, favor low-grade on both biopsy and ECC. SMITA ORONA MD [address], [place], [address], [facility] 05/30/2023 12:45:42 07/10/2023 text/html Patient presents for LEEP indicated for SHINE-2 on pap smear. SMITA ORONA MD [address], [place], [address], [facility] 07/10/2023 12:55:05 10/09/2023 text/html Presents to discuss DEXA results. Reports previous DEXA scan years ago with osteopenia; has not been on medications. Hx of two foot/ankle fractures due to trauma, no hx of fragility fractures. DEXA shows osteoporosis (T score -3.3) in lumbar spine, global osteopenia in other areas. Having difficulty taking calcium supplements as they make her sick. SMITA ORONA MD [address], [place], [address], [facility] 10/09/2023 17:20:17 03/04/2024 text/html Patient presents for repeat pap smear. Hx of LEEP in 06/2023 for CIN2, completely excised. Presents for repeat pap smear for surveillance. No new symptoms. SMITA ORONA MD [address], [place], [address], [facility] 03/04/2024 17:00:19 09/27/2024 text/html Presents today f or her annual well-woman exam. Denies abnormal vaginal discharge. She is sexually active and denies dyspareunia. She has not noticed any changes or masses in her breasts. Up to date on mammograms. Menopausal, no PMB. No hx of abnormal pap smears. SMITA ORONA MD [address], [place], [address], [facility] 09/27/2024 14:27:31 OBGyn Episode Ob Episode Information Episode Created Date Number of Fetuses Patient Bloodtype Patient rh Status Prepregnancy Weight lbs Domestic Partner Domestic Partner Phone Father Name Semiconductor Wafers Saw Operator Status 03/30/20 21 1 CLOSED Fetus Data First Name Last Name Admitted to NICU Weight (g) Sex Living Outcome Pediatric Complications Fetus ID Race Codes Race Delivery Type 3401.94 M [id number] Vaginal Delivery Carlos Calculation Initial Carlos Date Initial Exam Date Initial Exam Provider Initial Ultrasound Date Last Menstrual Period Date Ultra Sound Weeks Gestation 0 Eighteen To Twenty Week Carlos Update Ultra Sound Date Fundal Height At Umbil Quickening Date Ultra Sound Latest Weeks Gestation Final Carlos Confirmed By Final Carlos Confirmed Date Final Carlos Date Ultra Sound Latest Days Gestation 0 0 Menstrual History Last Menstrual Date Menses Monthly On Bcp Conception Prior Menses Frequency Hcg Plus Date Menarche Onset Age Delivery Information Delivery Date Delivery Type Labor Anesthesia Weeks Gestation Incision Type Labor Labor Length Hrs Delivered By Post Complications Tubal Sterilization Discharge Date Comments 5 Discharge Information Feeding Method Contraceptive Method Maternal HG B and HCT Levels Ob Episode Information Episode Created Date Number of Fetuses Patient Bloodtype Patient rh Status Prepregnancy Weight lbs Domestic Partner Domestic Partner Phone Father Name Semiconductor Wafers Saw Operator Status 03/30/20 21 1 CLOSED Fetus Data First Name Last Name Admitted to NICU Weight (g) Sex Living Outcome Pediatric Complications Fetus ID Race Codes Race Delivery Type 3742.13 4 M [id number] Vaginal Delivery Carlos Calculation Initial Carlos Date Initial Exam Date Initial Exam Provider Initial Ultrasound Date Last Menstrual Period Date Ultra Sound Weeks Gestation 0 Eighteen To Twenty Week Carlos Update Ultra Sound Date Fundal Height At Umbil Quickening Date Ultra Sound Latest Weeks Gestation Final Carlos Confirmed By Final Carlos Confirmed Date Final Carlos Date Ultra Sound Latest Days Gestation 0 0 Menstrual History Last Menstrual Date Menses Monthly On Bcp Conception Prior Menses Frequency Hcg Plus Date Menarche Onset Age Delivery Information Delivery Date Delivery Type Labor Anesthesia Weeks Gestation Incision Type Labor Labor Length Hrs Delivered By Post Complications Tubal Sterilization Discharge Date Comments 7 GDM Discharge Information Feeding Method Contraceptive Method Maternal HG B and HCT Levels Ob Episode Information Episode Created Date Number of Fetuses Patient Bloodtype Patient rh Status Prepregnancy Weight lbs Domestic Partner Domestic Partner Phone Father Name Semiconductor Wafers Saw Operator Status 03/30/20 21 1 CLOSED Fetus Data First Name Last Name Admitted to NICU Weight (g) Sex Living Outcome Pediatric Complications Fetus ID Race Codes Race Delivery Type 3061.74 6 M [id number] Vaginal Delivery Carlos Calculation Initial Carlos Date Initial Exam Date Initial Exam Provider Initial Ultrasound Date Last Menstrual Period Date Ultra Sound Weeks Gestation 0 Eighteen To Twenty Week Carlos Update Ultra Sound Date Fundal Height At Umbil Quickening Date Ultra Sound Latest Weeks Gestation Final Carlos Confirmed By Final Carlos Confirmed Date Final Carlos Date Ultra Sound Latest Days Gestation 0 0 Menstrual History Last Menstrual Date Menses Monthly On Bcp Conception Prior Menses Frequency Hcg Plus Date Menarche Onset Age Delivery Information Delivery Date Delivery Type Labor Anesthesia Weeks Gestation Incision Type Labor Labor Length Hrs Delivered By Post Complications Tubal Sterilization Discharge Date Comments 0 Discharge Information Feeding Method Contraceptive Method Maternal HG B and HCT Levels
[2025-01-08 19:34] LABS: Basophils Absolute Auto 0.1 K/mm3 (0.0-0.1); Eosinophils Absolute Auto 0.3 K/mm3 (0-0.3); Eosinophils Percent Auto 4.8 % (0-4.4); Hematocrit 44.7 % (37.0-47.0); Hemoglobin 14.3 g/dL (12.0-15.0); Immature Granulocyte Absolute 0.02 K/mm3 (0.00-0.031); Immature Granulocyte Percent A 0.3 % (0-0.5); Lymphocytes Absolute Auto 1.41 K/mm3 (0.9-3.2); Lymphocytes Percent Auto 24.2 % (18.3-44.2); Mean Corpuscular Hemoglobin 29.9 pg (26-34); Mean Corpuscular Volume 93.3 fl (80-100); Mean Platelet Volume 10.3 fl (7.4-10.4); Monocytes Absolute Auto 0.5 K/mm3 (0.1-0.6); Monocytes Percent Auto 7.9 % (2.6-8.5); Neutrophils Absolute Auto 3.6 K/mm3 (1.3-6.7); Neutrophils Percent Auto 61.8 % (45.5-73.1); Platelet Count Result 225 k/mm3 (150-375); Red Blood Count 4.79 M/mm3 (4.2-5.4); Red Cell Distribution Width 13.8 % (11.5-14.5); White Blood Count 5.8 K/mm3 (4.5-10.0)
[2025-01-08 20:14] LABS: Alanine Aminotransferase 67 U/L (6-35); Albumin Level 4.5 g/dL (3.5-5.1); Alkaline Phosphatase 85 U/L (38-126); Anion Gap 9 mmol/L (4-12); Aspartate Amino Transferase 78 U/L (14-36); Bilirubin,Total 0.5 mg/dL (0.2-1.3); Blood Urea Nitrogen 11 mg/dL (7-17); Calcium 9.4 mg/dL (8.4-10.2); Carbon Dioxide 24 mmol/L (22-30); Chloride 104 mmol/L (98-107); Cholesterol 231 mg/dL (0-200); Estimated Glomerular Filt Rate > 60; Glucose 110 mg/dL (65-110); HDL Direct 90 mg/dL; Sodium 137 mmol/L (137-145); Triglycerides 112 mg/dL (<150)
[2025-01-08 20:29] LABS: LDL Cholesterol Direct 101 mg/dL
[2025-01-08 20:30] LABS: Vitamin D 25 Hydroxy 29.8 ng/mL
== END 2025-01-08 08:31 | disposition home or self-care (01) ==
LOC: ANHGOSHLAB 08:31
PROVIDERS: PCP Family Medicine; Visit Provider Nurse Practitioner Family
DX: R25.2 Cramp and spasm (principal); I10 Essential (primary) hypertension; E78.5 Hyperlipidemia, unspecified; E55.9 Vitamin D deficiency, unspecified
CPT/HCPCS: 36415; 80053; 80061; 82306; 83735; 84443; 85025

== ENCOUNTER 2025-04-01 08:04 | Outpatient (CLI) | payer MEDICARE, SELFPAY ==
--- OUTSIDE RECORDS SUMMARY | 2025-04-01 08:21 | XMS_ITS | Clinical Summary ---
Author Organization [facility] Address [address] [place] [address] Care Team Providers Care Shochet Name Role Phone Lonnie Myers MD Primary Care Provider [phone] Source Comments [facility],non-owned Affiliates and Associated Physician Practices is amultiple site organization consisting of ambulatory clinics and hospital sitesin [place], [place], [place] and [place]. This disclosure is being madepursuant to the Care Everywhere program and may not contain all information available regarding this patient. Last updated 18.[facility] Allergies Active Allergy Reactions Criticality Noted Date [...] season) 2024 DEPRESSION SCREENING 08/14/2024 INFLUENZA VACCINE (#1) 2025 Respiratory Syncytial Virus (RSV) Vaccine Pt: [...] patient's age to complete this topic Insurance [employer] Care Teams Shochet Relationship Specialty Start Date End Date Lonnie Myers MD [address] [place] [address] PCP - General Family Medicine 02/05/17
--- OUTSIDE RECORDS SUMMARY | 2025-04-01 08:21 | XMS_ITS | Clinical Summary ---
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 - Ki67 8% PREMENO s/p RIGHT mastectomy Fec x 3 --Taxotere x 3 finished 04/26/07 (now postmenopausal) 07/19/07 Radiaiton complete 08/14/07 TMX x 5 year Assessment & Plan (05/13/2013 2:42 PM CDT): 6 1/2 yr out mammo left February lsot daronht with AID Assessment & Plan (10/17/2012 3:00 PM WAITER AND CASHIER): 6 years out Mammo on left in December BMD 2011 ROV 6 months Assessment & Plan (04/09/2012 3:11 PM CDT): 5 1/2 years out Will stop TMX now mammo December BMD 2011 ROV 1 year Assessment & Plan (09/30/2011 11:12 AM WAITER AND CASHIER): 5 years out in November last week On TMX until next Aug Mammo November Bmd due this year ROV 1 year Assessment & Plan (03/25/2011 11:22 AM CDT): 4 + years out 2 grandsons - live next door to her On TMX 3 1/2 years Mammo November BMD 2009 ROV 6 months per her request Assessment & Plan (09/20/2010 11:23 AM WAITER AND CASHIER): Will be 4yrs out in November ENGAGED On TMX 3 yrs Mammogram November Implant left breast with cysts above it - check u/s BMD 2009 ROV 6 months Assessment & Plan (03/19/2010 3:03 PM CDT): 3 yrs out Tmx / urs - doesn't want to switch Mammogram November Implant left breast BMD 2009 ROV 1 year Assessment & Plan (09/14/2009 2:58 PM WAITER AND CASHIER): Taking Reliv and her ankle pain is [...] of malignant neoplasm of breast Disproportion between grayling breast and reconstructed breast Personal history of [...] on file Legal Sex Female 5:41 AM WAITER AND CASHIER Gender Identity Not on file Sexual Orientation Not on file Occupation Industry Job Start Date Job End Date Not on file Not on file Not on file Not on file Last Filed Vital Signs Vital Sign Reading Time Taken Comments Blood Pressure 153/97 07/22/2022 9:23 AM WAITER AND CASHIER Pulse 80 07/24/2021 4:37 PM WAITER AND CASHIER Temperature 36.1 C (97 F) 07/24/2021 4:14 PM WAITER AND CASHIER Respiratory Rate 18 07/24/2021 4:37 PM WAITER AND CASHIER Oxygen Saturation 92% 07/24/2021 4:37 PM WAITER AND CASHIER Inhaled Oxygen Concentration - - Weight 79.8 kg (176 lb) 07/22/2022 9:23 AM WAITER AND CASHIER Height 157.5 cm (5' 2) 07/22/2022 9:23 AM WAITER AND CASHIER Body Mass Index 32.19 07/22/2022 9:23 AM WAITER AND CASHIER Plan of Treatment Health Maintenance Due Date [...] exists OSTEOPOROSIS SCREENING 2022 INFLUENZA VACCINE (#1) 2025 RSV VACCINE (60+ or ) (1 - 1-dose 75+ series) 2032 Medical Devices Implanted Type Area Spindle Carver Device Identifier Shelf Expiration Date Model / Serial / Lot Dumpcart Driver Clip Surgiclip Ii Abdoul 9.75in [id number] - [id number] Implanted:Qty: 1 on 11/18/2020 by Navin Leroy MD at [facility] Clip N/A: Abdomen MEDTRONIC - COVIDIEN [id number] 07/13/2025 [id number] / / [id number] Description:Implanted in jose ast and abdominal tissue Dumpcart Driver Clip Surgiclip Ii Abdoul 9.75in [id number] - [id number] Implanted:Qty: 1 on 11/18/2020 by Navin Leroy MD at [facility] Clip N/A: Abdomen MEDTRONIC - COVIDIEN [id number] 07/13/2025 [id number] / / [id number] Description:Implanted in jose ast and abdominal tissue Dumpcart Driver Clip Surgiclip Iii Ti Abdoul Sm 9 671576 - [id number] Implanted:Qty: 1 on 11/18/2020 by Navin Leroy MD at [facility] Clip N/A: Abdomen MEDTRONIC - COVIDIEN [id number] 06/13/2025 [id number] / / [id number] Description:Implanted in jose ast and abdominal tissue Dumpcart Driver Clip Surgiclip Iii Ti Abdoul Sm 9 071344 - [id number] Implanted:Qty: 1 on 11/18/2020 by Navin Leroy MD at [facility] Clip N/A: Abdomen MEDTRONIC - COVIDIEN [id number] 06/13/2025 [id number] / / [id number] Description:Implanted in jose ast and abdominal tissue Clip Micro [place]way 6s [id number] - [id number] Implanted:Qty: 9 on 11/18/2020 by Navin Leroy MD at [facility] Clip N/A: Abdomen VITALITEC INTL [id number] 02/10/2025 [id number] / / [id number] Description:Implanted in jose ast and abdominal tissue Clip Micro [place]way 6s [id number] - [id number] Implanted:Qty: 1 on 11/18/2020 by Navin Leroy MD at [facility] Clip N/A: Abdomen VITALITEC INTL [id number] 08/13/2025 [id number] / / [id number] Description:Implanted in jose ast and abdominal tissue Mesh Soft Mesh 6x6 [id number] - [id number] Implanted:Qty: 1 on 02/03/2021 by Navin Leroy MD at [facility] Mesh Left: Abdomen CR BARD- DAVOL INC [id number] 03/10/2025 [id number] / / [id number] Med Oval [id number] - [id number] Implanted:Qty: 1 on 07/24/2021 by Navin Leroy MD at [facility] Mesh N/A: Abdomen CR BARD- DAVOL INC [id number] 01/08/2023 [id number] / / [id number] Drafter [employer] Design Microvasc Anastomotic 3.5mm [id number] - [id number] Implanted:Qty: 1 on 11/18/2020 by Navin Leroy MD at [facility] Other Right: Breast SYNOVIS- MICRO CO ALLIANCE 10/01/2025 [id number] / / [id number] Dra[employer] Design Microvasc Anastomotic 3.0mm [id number] - [id number] Implanted:Qty: 1 on 11/18/2020 by Navin Leroy MD at [facility] Other Right: Breast SYNOVIS- MICRO [employer] ALLIANCE 09/11/2025 [id number] / / [id number] [employer] Design Microvasc Anastomotic 2.0mm [id number] - [id number] Implanted:Qty: 1 on 11/18/2020 by Navin Leroy MD at [facility] Other Right: Breast SYNOVIS- MICRO [employer] ALLIANCE 01/27/2025 [id number] / / [id number] Hardware R Side Of Head Wei Cataracts With Iol Explanted Type Area Spindle Carver Device Identifier Shelf Expiration Date Model / Serial / Lot Imp Breast Natrelle 410mx 165gm [id number] - [id number] Explanted:Qty : 1 on 11/18/2020 by Nvain Leroy MD at [facility] Mammary Left: Breast ALLERGAN- MEDICAL [id number] / / [id number] Description:410-MX 165g, lot [id number] Viji implanted in 2009 Imp Breast Starr 410mx 165gm [id number] - [id number] Explanted:Qty : 1 on 11/18/2020 by Navin Leroy MD at [facility] Mammary Right: Breast ALLERGAN- MEDICAL [id number] / / [id number] Description:410-MX 445cc lot [id number] implanted in 2009 Procedures Procedure Name Priority Date/Time Associated Diagnosis Comments MAMMO 3D EVIN SCREEN UNI LT W OR WO CAD Routine 07/22/2021 9:53 AM WAITER AND CASHIER History of breast cancer from Last 3 Months or Most Recently Relevant to Health Maintenance Results * MAMMO SCRN UNI LT 3D EVIN W OR WO CAD (07/22/2021 9:53 AM WAITER AND CASHIER) Anatomical Region Laterality Modality Breast Left Mammography 07/22/2021 9:54 AM WAITER AND CASHIER Impressions 07/22/2021 3:25 PM WAITER AND CASHIER IMPRESSION: No mammographic evidence of malignancy. RECOMMENDATIONS: Routine screening mammogram in one year. DICTATION LOCATION: [facility] 07/22/2021 3:25 PM WAITER AND CASHIER EXAM: LEFT UNILATERAL FULL-FIELD DIGITAL SCREENING MAMMOGRAM [...] screening mammogram in one year. DICTATION LOCATION: [facility] Randee Satnos MD MAMMO ORDERABLES Final Result from Last 3 Months or Most Recently Relevant to Health Maintenance Insurance RX [facility] BENEFIT PLANS Advance Directives For more information, please contact: [phone] Documents on File Type Date Recorded Patient Freight Dispatcher Expl anation Advance Directive POA 11/27/2014 11:15 AM * Full Code (Latest Code Status on File) Date Activated Date Inactivated Comments 02/03/2021 1:51 PM 02/03/2021 10:53 PM * Full Code Date Activated Date Inactivated Comments 11/18/2020 5:20 PM 11/21/2020 10:12 PM * Full Code Date Activated Date Inactivated Comments 11/18/2020 3:10 PM 11/18/2020 5:20 PM Care Teams Inspector Metal Can Relationship Specialty Start Date End Date Shelbie Joseph MD [address] [place] [address] PCP - General Family Practice 07/22/21
[2025-04-01 13:29] LABS: Alanine Aminotransferase 87 U/L (6-35); Albumin Level 4.4 g/dL (3.5-5.1); Alkaline Phosphatase 78 U/L (38-126); Anion Gap 9 mmol/L (4-12); Aspartate Amino Transferase 110 U/L (14-36); Bilirubin,Total 0.6 mg/dL (0.2-1.3); Blood Urea Nitrogen 10 mg/dL (7-17); Calcium 9.4 mg/dL (8.4-10.2); Carbon Dioxide 26 mmol/L (22-30); Chloride 102 mmol/L (98-107); Estimated Glomerular Filt Rate > 60; Glucose 90 mg/dL (65-110); Potassium 4.4 mmol/L (3.4-5.0); Sodium 137 mmol/L (137-145); Total Protein 8.0 g/dL (6.3-8.2)
== END 2025-04-01 08:05 | disposition home or self-care (01) ==
LOC: ANHGOSHLAB 08:05
PROVIDERS: PCP Family Medicine; Visit Provider Family Medicine
DX: R74.8 Abnormal levels of other serum enzymes (principal); I10 Essential (primary) hypertension
CPT/HCPCS: 36415; 80053

== ENCOUNTER 2025-04-15 07:33 | Outpatient (CLI) | payer MEDICARE, SELFPAY ==
--- NOTE | ~2025-04-15 | US_ITS ---
US right upper quadrant INDICATION: Abnormal liver enzymes PROCEDURE: Realtime right upper abdominal ultrasound. COMPARISON: 07/14/2010 FINDINGS: The pancreas is normal without focal mass or pancreatic ductal dilation. Liver echotexture is increased, consistent with fatty infiltration. There is normal directional flow in the portal vein. The gallbladder is normal without stones, gallbladder wall thickening or pericholecystic fluid. Common bile duct measures 5.5 mm. No sonographic Aguilar's sign. IMPRESSION: 1: Fatty infiltration of the liver. Reviewed, dictated and finalized at location O.
== END 2025-04-15 07:34 | disposition home or self-care (01) ==
LOC: MICIMG 07:33
PROVIDERS: PCP Family Medicine; Visit Provider Family Medicine
DX: R74.8 Abnormal levels of other serum enzymes (principal); K76.0 Fatty (change of) liver, not elsewhere classified
CPT/HCPCS: 76705

== ENCOUNTER 2025-05-12 14:48 | Outpatient (CLI) | payer MEDICARE, SELFPAY ==
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
== END 2025-05-12 14:49 | disposition home or self-care (01) ==
LOC: GOSHIMG 14:49
PROVIDERS: PCP Family Medicine; Visit Provider Nurse Practitioner Family
DX: M54.50 Low back pain, unspecified (principal)
CPT/HCPCS: 72100

== ENCOUNTER 2025-05-13 10:12 | Outpatient (CLI) | payer MEDICARE, SELFPAY ==
--- OUTSIDE RECORDS SUMMARY | 2025-05-13 10:56 | XMS_ITS | Clinical Summary ---
Author Organization [facility] Address [address] [place] [address] Care Team Providers Care Forensic Toxicologist Name Role Phone Shelbie Joseph MD Primary Care Provider Allergies No known active allergies Medications amLODIPine 5 MG tablet Take 5 mg by mouth daily. 09/23/2021 Active Social History Tobacco Use Types Packs/Day Years Used Date Smoking Tobacco: Never Assessed Comments Unknown Sex and Gender Information Value Date Recorded Sex Assigned at Not on file Legal Sex Female 8:22 PM CDT Gender Identity Not on file Sexual Orientation Not on file Last Filed Vital Signs Vital Sign Reading Time Taken Comments Blood Pressure 146/62 12/19/2021 2:34 PM CDT Pulse 60 12/19/2021 2:34 PM CDT Temperature 36.8 C (98.2 F) 12/19/2021 2:34 PM CDT Respiratory Rate 20 12/19/2021 2:34 PM CDT Oxygen Saturation 99% 12/19/2021 2:34 PM CDT Inhaled Oxygen Concentration - - Weight 70.8 kg (156 lb) 12/19/2021 1:21 PM CDT Height 162.6 cm (5' 4) 12/19/2021 1:21 PM CDT Body Mass Index 26.78 12/19/2021 1:21 PM CDT Plan of Treatment Health Maintenance Due Date Last Done Comments Colorectal Cancer Screening Colonoscopy (10 Years) 1955 Hepatitis C 1975 Mammogram Screening 1997 Pneumococcal Vaccine: 50+ Years (1 of 1 - PCV) 2007 Dexa Scan (General) 2022 COVID-19 Vaccine (3 - 2024-2 6 season) 2025 06/28/2021, 10/19/2020 DTaP, Tdap and Td Vaccines ( 3 - Td or Tdap) 06/21/2031 06/21/2021, 02/12/2008 RSV Immunization or 60+ Years (1 - 1-dose 75+ series) 2032 Zoster Vaccines Completed 09/09/2021, 06/21/2021 Meningococcal B Vaccine Aged Out No l onger eligible based on patient's age to complete this topic Meningococcal Vaccine Aged Out No jericho felix eligible based on patient's age to complete this topic RSV Immunizations Under 20 Months Aged Out No longer eligible b ased on patient's age to complete this topic Insurance Arrively Care Teams Forensic Toxicologist Relationship Specialty Start Date End Date Shelbie Joseph MD [address] [place] [address] PCP - General FAMILY PRACTICE 12/19/21
--- OUTSIDE RECORDS SUMMARY | 2025-05-13 10:56 | XMS_ITS | Clinical Summary ---
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% [place] 83% HER2/ruddy - Ki67 8% PREMENO s/p RIGHT mastectomy Fec x 3 --Taxotere x 3 finished 04/26/07 (now postmenopausal) 07/19/07 Radiaiton complete 08/14/07 TMX x 5 year Assessment & Plan (05/13/2013 2:42 PM CDT): 6 1/2 yr out mammo left February lsot daronht with AID Assessment & Plan (10/17/2012 3:00 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): 6 years out Mammo on left in December BMD 2011 ROV 6 months Assessment & Plan (04/09/2012 3:11 PM CDT): 5 1/2 years out Will stop TMX now mammo December BMD 2011 ROV 1 year Assessment & Plan (09/30/2011 11:12 AM SANITATION WORKER 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): 5 years out in November last week On TMX until next Aug Mammo November Bmd due this year ROV 1 year Assessment & Plan (03/25/2011 11:22 AM CDT): 4 + years out 2 grandsons - live next door to her On TMX 3 1/2 years Mammo November BMD 2009 ROV 6 months per her request Assessment & Plan (09/20/2010 11:23 AM SANITATION WORKER 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): Will be 4yrs out in November ENGAGED On TMX 3 yrs Mammogram November Implant left breast with cysts above it - check u/s BMD 2009 ROV 6 months Assessment & Plan (03/19/2010 3:03 PM CDT): 3 yrs out Tmx / urs - doesn't want to switch Mammogram November Implant left breast BMD 2009 ROV 1 year Assessment & Plan (09/14/2009 2:58 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): Taking Reliv and her ankle pain is [...] of malignant neoplasm of breast Disproportion between [place] breast and reconstructed breast Personal history of [...] on file Legal Sex Female 5:41 AM SANITATION WORKER 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 Gender Identity Not on file Sexual Orientation Not on file Occupation Industry Job Start Date Job End Date Not on file Not on file Not on file Not on file Last Filed Vital Signs Vital Sign Reading Time Taken Comments Blood Pressure 153/97 07/22/2022 9:23 AM SANITATION WORKER 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 Pulse 80 07/24/2021 4:37 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 Temperature 36.1 C (97 F) 07/24/2021 4:14 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 Respiratory Rate 18 07/24/2021 4:37 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 Oxygen Saturation 92% 07/24/2021 4:37 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 Inhaled Oxygen Concentration - - Weight 79.8 kg (176 lb) 07/22/2022 9:23 AM SANITATION WORKER 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 Height 157.5 cm (5' 2) 07/22/2022 9:23 AM SANITATION WORKER 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 Body Mass Index 32.19 07/22/2022 9:23 AM SANITATION WORKER 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 Plan of Treatment Health Maintenance Due Date [...] series) 2032 Medical Devices Implanted Type Area Automobile Body Repairer Device Identifier Shelf Expiration Date Model / Serial / Lot Drone Operator Clip Surgiclip Ii Abdoul 9.75in [id number] - [id number] Implanted:Qty: 1 on 11/18/2020 by Navin Leroy MD at [facility] Clip N/A: Abdomen MEDTRONIC - COVIDIEN [id number] 07/13/2025 [id number] / / [id number] Description:Implanted in jose ast and abdominal tissue Drone Operator Clip Surgiclip Ii Abdoul 9.75in [id number] - [id number] Implanted:Qty: 1 on 11/18/2020 by Navin Leroy MD at [facility] Clip N/A: Abdomen MEDTRONIC - COVIDIEN [id number] 07/13/2025 [id number] / / [id number] Description:Implanted in jose ast and abdominal tissue Drone Operator Clip Surgiclip Iii Ti Abdoul Sm 9 [id number] - [id number] Implanted:Qty: 1 on 11/18/2020 by Navin Leroy MD at [facility] Clip N/A: Abdomen MEDTRONIC - COVIDIEN [id number] 06/13/2025 [id number] / / [id number] Description:Implanted in jose ast and abdominal tissue Drone Operator Clip Surgiclip Iii Ti Abdoul Sm 9 [id number] - [id number] Implanted:Qty: 1 on 11/18/2020 by Navin Leroy MD at [facility] Clip N/A: Abdomen MEDTRONIC - COVIDIEN [id number] 06/13/2025 [id number] / / [id number] Description:Implanted in jose ast and abdominal tissue Clip Micro Robertson 6s [id number] - [id number] Implanted:Qty: 9 on 11/18/2020 by Navin Leroy MD at [facility] Clip N/A: Abdomen VITALITEC INTL [id number] 02/10/2025 [id number] / / [id number] Description:Implanted in jose ast and abdominal tissue Clip Micro Robertson 6s [id number] - [id number] Implanted:Qty: 1 on 11/18/2020 by Navin Leroy MD at [facility] Clip N/A: Abdomen VITALITEC INTL [id number] 08/13/2025 [id number] / / [id number] Description:Implanted in jose ast and abdominal tissue Mesh Soft Mesh 6x6 [id number] - [id number] Implanted:Qty: 1 on 02/03/2021 by Navin Leroy MD at [facility] Mesh Left: Abdomen CR BARD- DAVOL INC [id number] 03/10/2025 [id number] / / [id number] Med Oval [id number] - [id number] Implanted:Qty: 1 on 07/24/2021 by Navin Leroy MD at [facility] Mesh N/A: Abdomen CR BARD- DAVOL INC [id number] 01/08/2023 [id number] / / [id number] Adobe Architect Microvasc Anastomotic 3.5mm [id number] - [id number] Implanted:Qty: 1 on 11/18/2020 by Navin Leroy MD at [facility] Other Right: Breast SYNOVIS- MICRO [employer] ALLIANCE 10/01/2025 [id number] / / [id number] Adobe Architect Microvasc Anastomotic 3.0mm [id number] - [id number] Implanted:Qty: 1 on 11/18/2020 by Navin Leroy MD at [facility] Other Right: Breast SYNOVIS- MI[employer]IANCE 09/11/2025 [id number] / / [id number] Adobe Architect Microvasc Anastomotic 2.0mm [id number] - [id number] Implanted:Qty: 1 on 11/18/2020 by Navin Leroy MD at [facility] Other Right: Breast SYNOVIS- MICRO [employer]IANCE 01/27/2025 [id number] / / [id number] Hardware R Side Of Head Wei Cataracts With Iol Explanted Type Area Automobile Body Repairer Device Identifier Shelf Expiration Date Model / Serial / Lot Imp Breast Natrelle 410mx 165gm [id number] - [id number] Explanted:Qty : 1 on 11/18/2020 by Navin Leroy MD at [facility] Mammary Left: Breast ALLERGAN- MEDICAL [id number] / / [id number] Description:410-MX 165g, lot [id number] Viji implanted in 2009 Imp Breast Starr 410mx 165gm [id number] - [id number] Explanted:Qty : 1 on 11/18/2020 by Navin Leroy MD at [facility] Mammary Right: Breast ALLERGAN- MEDICAL [id number] / / [id number] Description:410-MX 445cc lot [id number] implanted in 2009 Procedures Procedure Name Priority Date/Time Associated Diagnosis Comments MAMMO 3D EVIN SCREEN UNI LT W OR WO CAD Routine 07/22/2021 9:53 AM SANITATION WORKER 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 History of breast cancer from Last 3 Months or Most Recently Relevant to Health Maintenance Results * MAMMO SCRN UNI LT 3D EVIN W OR WO CAD (07/22/2021 9:53 AM SANITATION WORKER 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) Anatomical Region Laterality Modality Breast Left Mammography 07/22/2021 9:54 AM SANITATION WORKER 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 Impressions 07/22/2021 3:25 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 IMPRESSION: No mammographic evidence of malignancy. RECOMMENDATIONS: Routine screening mammogram in one year. DICTATION LOCATION: [facility] 07/22/2021 3:25 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 EXAM: LEFT UNILATERAL FULL-FIELD DIGITAL SCREENING MAMMOGRAM [...] LOCATION: [facility] Randee Santos MD MAMMO ORDERABLES Final Result from Last 3 Months or Most Recently Relevant to Health Maintenance Insurance RX [facility] BENEFIT PL[facility] Advance Directives For more information, please contact: [phone] Documents on File Type Date Recorded Patient Medical Office Receptionist Expl anation Advance Directive POA 11/27/2014 11:15 AM * Full Code (Latest Code Status on File) Date Activated Date Inactivated Comments 02/03/2021 1:51 PM 02/03/2021 10:53 PM * Full Code Date Activated Date Inactivated Comments 11/18/2020 5:20 PM 11/21/2020 10:12 PM * Full Code Date Activated Date Inactivated Comments 11/18/2020 3:10 PM 11/18/2020 5:20 PM Care Teams Billboard Mechanic Relationship Specialty Start Date End Date Shelbie Joseph MD [address] [place] [address] PCP - General Family Practice 07/22/21
--- OUTSIDE RECORDS SUMMARY | 2025-05-13 10:56 | XMS_ITS | Clinical Summary ---
Author Organization [facility] Address [address] [place] [address] Care Team Providers Care Diesel Engine Erector Name Role Phone Lonnie Myers MD Primary Care Provider [phone] Source Comments [facility] [employer],non-owned Affiliates and Associated Physician Practices is amultiple site organization consisting of ambulatory clinics and hospital sitesin [place], [place], [place] and [place]. This disclosure is being madepursuant to the Care Everywhere program and may not contain all information available regarding this patient. Last updated 18.[facility] [employer] Allergies Active Allergy Reactions Criticality Noted Date [...] 2007 ZOSTER VACCINE (1 of 2) 2007 DEPRESSION SCREENING 08/14/2024 COVID-19 VACCINE (1 - 2023-2 5 season) 2025 INFLUENZA VACCINE (#1) 2025 Respiratory Syncytial Virus [...] patient's age to complete this topic Insurance [employer] [facility] Address: [facility] [id number] [place] [address] Care Teams Diesel Engine Erector Relationship Specialty Start Date End Date Lonnie Myers MD [address] [facility] [address] PCP - General Family Medicine 02/05/17
[2025-05-13 13:07] LABS: Hematocrit 41.9 % (37.0-47.0); Hemoglobin 13.7 g/dL (12.0-15.0); Mean Corpuscular HGB Conc 32.7 g/dl (32-36); Mean Corpuscular Hemoglobin 29.6 pg (26-34); Mean Corpuscular Volume 90.5 fl (80-100); Platelet Count Result 266 k/mm3 (150-375); Red Blood Count 4.63 M/mm3 (4.2-5.4); White Blood Count 6.2 K/mm3 (4.5-10.0)
[2025-05-13 13:08] LABS: Iron 83 ug/dL (37-170)
[2025-05-13 13:12] LABS: INR 1.0; Prothrombin Time 13.5 Seconds (11.1-14.7)
[2025-05-13 13:17] LABS: Alanine Aminotransferase 46 U/L (6-35); Albumin Level 4.3 g/dL (3.5-5.1); Alkaline Phosphatase 99 U/L (38-126); Anion Gap 8 mmol/L (4-12); Aspartate Amino Transferase 73 U/L (14-36); Bilirubin,Total 0.4 mg/dL (0.2-1.3); Blood Urea Nitrogen 12 mg/dL (7-17); Calcium 9.1 mg/dL (8.4-10.2); Carbon Dioxide 23 mmol/L (22-30); Chloride 107 mmol/L (98-107); Estimated Glomerular Filt Rate > 60; Glucose 97 mg/dL (65-110); Potassium 4.2 mmol/L (3.4-5.0); Sodium 138 mmol/L (137-145); Total Protein 7.8 g/dL (6.3-8.2)
[2025-05-13 13:43] LABS: Hepatitis B Surface Antigen Negative (Negative)
[2025-05-13 13:49] LABS: HAV RESULT Negative (Negative); Hepatitis B Core IgM Result Negative (Negative)
[2025-05-13 13:50] LABS: Ferritin 120.00 ng/mL (11.1-264)
[2025-05-13 13:51] LABS: Percent Iron Saturation 23 % (20-50)
[2025-05-13 13:52] LABS: Immunoglobulin G 974 mg/dL (700-1600)
[2025-05-13 16:07] LABS: Immunoglobulin M 93 mg/dL (40-230)
[2025-05-14 15:09] LABS: ANA by IFA Rfx Titer/Pattern Negative (.)
== END 2025-05-13 10:13 | disposition home or self-care (01) ==
LOC: ANHGOSHLAB 10:12
PROVIDERS: PCP Family Medicine; Visit Provider Nurse Practitioner Family
DX: R74.8 Abnormal levels of other serum enzymes (principal); K76.0 Fatty (change of) liver, not elsewhere classified; R74.01 Elevation of levels of liver transaminase levels; R89.9 Unspecified abnormal finding in specimens from other organs, systems and tissues
CPT/HCPCS: 36415; 80053; 80074; 82103; 82390; 82728; 82784; 83540; 83550; 85027; 85610; 86015; 86038; 86376; 86381

== ENCOUNTER 2025-07-04 03:31 | Day surgery (SDC) | payer MEDICARE, SELFPAY ==
[2025-07-04 09:21] VITALS: BP 148/81; PULSE 97; RESP 16; TEMP 36.1; O2SAT 98; BMI 34.9
[2025-07-04] MEDS: LACTATED RINGERS 1,000 ML 150 ML IV CONT (09:35)
--- NOTE | 2025-07-04 10:22 | WPDANESEPPF ---
Anes - Initial Pre Proc Eval Procedure: Operation Date: 07/04/25 10:30 Proposed Procedures p Screening Colonoscopy - Maninder Luo MD Date/Time: 07/04/25 10:22 Surgeon: Maninder Luo MD Pre Op Diagnosis: +Cologuard Patient Data Age: 69 Gender: F Height: 1.57 m Weight: 86.6 kg Last Vital Signs Temp 97 F L 07/04/25 09:21 Pulse 97 07/04/25 09:21 Resp 16 07/04/25 09:21 BP 148/81 H 07/04/25 09:21 Pulse Ox 98 07/04/25 09:21 O2 Del Method Room Air 07/04/25 09:21 Allergies Allergy/AdvReac Type Severity Reaction Status Date / Time chocolate flavor Allergy Unknown Unknown Verified 07/04/25 09:19 NSAIDS (Non-Steroidal AdvReac Intermediate Unknown Verified 07/04/25 09:19 Anti-Inflamma rosuvastatin AdvReac muscle Verified 07/04/25 09:19 pain in thighs Home Medications ?Medication ?Instructions ?Recorded ?Confirmed ?Type apremilast 30 mg tablet (Otezla) 30 mg PO BID 12/23/20 07/04/25 History fish [id number] C-vit E 2,000 2.5 g PO DAILY 05/09/24 07/04/25 History mg-650 mg-12 mg/2.5 g emulsion packt alendronate 70 mg tablet 70 mg PO WEEKLY 01/16/25 06/24/25 History ergocalciferol (vitamin D2) 1,250 1,250 mcg PO WEEKLY #14 caps 01/20/25 06/24/25 Rx mcg (50,000 unit) capsule amlodipine 10 mg tablet 10 mg PO DAILY #90 tabs 02/28/25 07/04/25 Rx omega3 700 mg-dha 200 mg-epa 450 cap PO DAILY 05/12/25 06/16/25 History mg-dpa 50 [id number]-[id number] 50 mg capsule ([place]-3 2100 with COQ10) tramadol 50 mg tablet 50 mg PO DAILY PRN pain #30 tabs 05/12/25 06/24/25 Rx irbesartan 300 mg tablet 300 mg PO DAILY #90 tabs 05/26/25 07/04/25 Rx atorvastatin 10 mg tablet 10 mg PO QHS #90 tabs 06/11/25 07/04/25 Rx latanoprost 0.005 % eye drops 1 drp ophthalmic (eye) QPM 06/24/25 07/04/25 History Patient hx anesthesia problems: none Family hx anesthesia problems: none Results Review: All pre-operative results and documents have been reviewed as part of the pre-operative evaluation. [facility] Past Medical History Medical History Family history of colon cancer Positive colorectal cancer screening using Cologuard test Obese Hepatic steatosis Plantar fasciitis, bilateral Right hip pain Osteoporosis Incisional hernia of anterior abdominal wall without obstruction or gangrene History of right breast cancer Mixed hyperlipidemia CHARI on CPAP Psoriasis Primary hypertension Surgical History Surgical History History of incisional hernia repair 01/2021 S/P TRAM (transverse rectus abdominis muscle) flap breast reconstruction 11/2020 History of bilateral breast implants previously removed 11/2020 History of right mastectomy 2006 Family History Family History Mother Diabetes mellitus Family history of hypercholesterolemia Hypertension Family history of cardiovascular disease Family history of coronary artery disease Family history of malignant neoplasm of breast in first degree relative Grandparent Hypertension Family history of cardiovascular disease Social History Social History Social History: Caffeine- coffee Smoking packs per day: 0.5 Smoking cigarettes per day: 10.0 Years smoked: 10 Smoking pack-years: 5.00 Smoking status: Former smoker Tobacco type: cigarettes Second hand tobacco smoke exposure: No Smoking end date: 08/14/07 Alcohol intake: current Alcohol use details: wine occasionally Substance use: never Substance use type: does not use Lack of Transportation: No Lack of Food: Never True Current Housing: I Have Housing Concerned About Future Housing: No Difficulty Paying Gas/Electric Bills: No Difficulty Paying for Meds: No Currently Unemployed: No Education: High School Diploma/GED Difficulty w/ Childcare or Family Care: No Living arrangements: with family Spiritual care concerns: No Anes - Eval Final PreProcedure Day of Procedure 07/04/25 10:22 Patient weight: obese Lungs: normal air movement Airway: Mallampati scale class II Neurological: alert and oriented Last oral intake: >/= 8 hours ASA classification: III Emergent: no Anesthetic plan: proceed Anesthesia type and monitoring: general and standard monitoring Results Review: All pre-operative results and documents have been reviewed as part of the pre-operative evaluation. HTN, hyperlipidemia, BMI 34. Informed Consent: The patient's anesthetic plan and its attendant risks and benefits were discussed with the patient/family/POA. Questions were solicited and answers provided to the satisfaction of the patient/family/POA.
--- NOTE | 2025-07-04 10:34 | PM.HPGS ---
History of Present Illness History of Present Illness Consent: Risks, benefits, and alternatives have been discussed and questions answered. Patient agrees to proceed with procedure. Chief complaint: +Cologuard Narrative: Josie Wellington is a 69 year old female with + cologuard, last colonoscopy 2011 Review of Systems Review of Systems: All systems reviewed & are unremarkable except as noted in HPI and below PMFSH Past Medical History Medical History Family history of colon cancer Positive colorectal cancer screening using Cologuard test Obese Hepatic steatosis Plantar fasciitis, bilateral Right hip pain Osteoporosis Incisional hernia of anterior abdominal wall without obstruction or gangrene History of right breast cancer Mixed hyperlipidemia CHARI on CPAP Psoriasis Primary hypertension Surgical History Surgical History History of incisional hernia repair 01/2021 S/P TRAM (transverse rectus abdominis muscle) flap breast reconstruction 11/2020 History of bilateral breast implants previously removed 11/2020 History of right mastectomy 2006 Family History Family History Mother Diabetes mellitus Family history of hypercholesterolemia Hypertension Family history of cardiovascular disease Family history of coronary artery disease Family history of malignant neoplasm of breast in first degree relative Grandparent Hypertension Family history of cardiovascular disease Social History Social History Social History: Caffeine- coffee Smoking packs per day: 0.5 Smoking cigarettes per day: 10.0 Years smoked: 10 Smoking pack-years: 5.00 Smoking status: Former smoker Tobacco type: cigarettes Second hand tobacco smoke exposure: No Smoking end date: 08/14/07 Alcohol intake: current Alcohol use details: wine occasionally Substance use: never Substance use type: does not use Lack of Transportation: No Lack of Food: Never True Current Housing: I Have Housing Concerned About Future Housing: No Difficulty Paying Gas/Electric Bills: No Difficulty Paying for Meds: No Currently Unemployed: No Education: High School Diploma/GED Difficulty w/ Childcare or Family Care: No Living arrangements: with family Spiritual care concerns: No Meds Home Medications and Allergies Home Medications ?Medication ?Instructions ?Recorded ?Confirmed ?Type apremilast 30 mg tablet (Otezla) 30 mg PO BID 12/23/20 07/04/25 History fish fnu--rqi C-vit E 2,000 2.5 g PO DAILY 05/09/24 07/04/25 History mg-650 mg-12 mg/2.5 g emulsion packt alendronate 70 mg tablet 70 mg PO WEEKLY 01/16/25 06/24/25 History ergocalciferol (vitamin D2) 1,250 1,250 mcg PO WEEKLY #14 caps 01/20/25 06/24/25 Rx mcg (50,000 unit) capsule amlodipine 10 mg tablet 10 mg PO DAILY #90 tabs 02/28/25 07/04/25 Rx omega3 700 mg-dha 200 mg-epa 450 cap PO DAILY 05/12/25 06/16/25 History mg-dpa 50 to-[id number]-[id number] 50 mg capsule ([place]-3 2100 with COQ10) tramadol 50 mg tablet 50 mg PO DAILY PRN pain #30 tabs 05/12/25 06/24/25 Rx irbesartan 300 mg tablet 300 mg PO DAILY #90 tabs 05/26/25 07/04/25 Rx atorvastatin 10 mg tablet 10 mg PO QHS #90 tabs 06/11/25 07/04/25 Rx latanoprost 0.005 % eye drops 1 drp ophthalmic (eye) QPM 06/24/25 07/04/25 History Allergies Allergy/AdvReac Type Severity Reaction Status Date / Time chocolate flavor Allergy Unknown Unknown Verified 07/04/25 09:19 NSAIDS (Non-Steroidal AdvReac Intermediate Unknown Verified 07/04/25 09:19 Anti-Inflamma rosuvastatin AdvReac muscle Verified 07/04/25 09:19 pain in thighs Vital Signs Vital Signs - 24 hr 07/04/25 09:21 Temperature 97 F L Pulse Rate 97 Respiratory Rate 16 Blood Pressure 148/81 H Pulse Oximetry 98 Oxygen Delivery Room Air Exam Const: General: comfortable and no acute distress HENMT: Face/Nose/Sinus: Normal nares present Eyes: General: appearance normal, both eyes and all related structures Neck: Neck: no JVD Resp: Auscultation: clear to auscultation bilaterally Cardio: Rate: regular rate Rhythm: regular rhythm GI: Inspection: non-distended GI Palp: Yes Soft to palpation Skin: General skin exam: normal color Extrem: General: normal to inspection Psych: Mental Status: mental status grossly normal Assessment and Plan Assessment and plan (1) Positive colorectal cancer screening using Cologuard test: Code(s): R19.5 - Other fecal abnormalities Status: Acute Assessment and Plan: colonoscopy
--- NOTE | 2025-07-04 10:54 | S_PTH ---
PATIENT: Josie Wellington LOC: [facility] [place]#:[id number] AGE/SX: 69/F ROOM: RE07/04/[address]: Maninder Luo MD : 1955 BED: DIS: 07/04/2025 SPEC #: [id number] RECD: 07/04/25 12:56 STATUS: MITZI REAntonina #: [id number] LEILANI: 07/04/25 10:[address]: Maninder Luo DEPT: [facility] Surgical RECD BY: Mimi Almendarez ENTERED: 07/04/25 12:57 SP TYPE: Surgical OTHR DR: Shelbie Joseph MD Tissues: A - Colon Polypectomy Procedures: Hematoxylin and Eosin Stain Gross and Microscopic Level 4
[2025-07-04 10:57] VITALS: BP 116/62; PULSE 90; RESP 25; O2SAT 97
[2025-07-04 11:07] VITALS: BP 128/65; PULSE 84; RESP 22; O2SAT 100
[2025-07-04 11:17] VITALS: BP 137/83; PULSE 82; RESP 25; O2SAT 100
== END 2025-07-04 11:23 | disposition home or self-care (01) ==
PROVIDERS: PCP Family Medicine; Referring Provider Nurse Practitioner Family; Visit Provider Internal Medicine Gastroenterology
PROC: 0DJD8ZZ Inspection of Lower Intestinal Tract, Via Natural or Artificial Opening Endoscopic (ICD-10-PCS; CPT 45378; principal; 2025-07-04 10:30)
DX: R19.5 Other fecal abnormalities (principal); D12.3 Benign neoplasm of transverse colon; K64.8 Other hemorrhoids; K57.30 Diverticulosis of large intestine without perforation or abscess without bleeding; I10 Essential (primary) hypertension; E78.2 Mixed hyperlipidemia; G47.33 Obstructive sleep apnea (adult) (pediatric); M81.0 Age-related osteoporosis without current pathological fracture; L40.9 Psoriasis, unspecified; E66.9 Obesity, unspecified; Z68.34 Body mass index [BMI] 34.0-34.9, adult; Z79.83 Long term (current) use of bisphosphonates; Z79.891 Long term (current) use of opiate analgesic; Z99.89 Dependence on other enabling machines and devices; Z98.890 Other specified postprocedural states; Z90.11 Acquired absence of right breast and nipple; Z87.891 Personal history of nicotine dependence; Z87.19 Personal history of other diseases of the digestive system; Z85.3 Personal history of malignant neoplasm of breast; Z80.0 Family history of malignant neoplasm of digestive organs; Z80.3 Family history of malignant neoplasm of breast; Z82.49 Family history of ischemic heart disease and other diseases of the circulatory system
CPT/HCPCS: 45385; 88305; J2003; J2704; J7120